=== PATIENT | female | born 1955 | race Caucasian/White ===

== ENCOUNTER 2022-01-05 13:00 | Outpatient (RCR) | payer MEDICARE, BC, SELFPAY | END 2022-03-11 11:23 | disposition home or self-care (01) | PROVIDERS: Visit Provider Orthopaedic Surgery Sports Medicine | DX: M75.02 Adhesive capsulitis of left shoulder (principal); Z51.89 Encounter for other specified aftercare | CPT/HCPCS: 97110 ==

== ENCOUNTER 2023-12-11 15:21 | Outpatient (CLI) | payer OTHER, SELFPAY ==
--- OUTSIDE RECORDS SUMMARY | 2023-12-13 15:25 | XMS_ITS | Encounter Summary ---
Author Organization [employer] Address [address], [place] [address] Care Team Providers Care Physical Chemistry Professor Name Role Phone Grecia Shipman MD Primary Care Provide r Encounter Details Date Type Department Care Team (Late st Contact Info) Description 05/13/2019 Correspondence External to External, [place] [address] ENTERIC DISEASE REPORTING Social History Tobacco Use Types Packs/Day Years Used Date Smoking Tobacco: Former Cigarettes Q uit: 06/19/2016 Smokeless Tobacco: Never Comments:quit for 10 years a nd then restarted. Quit again 06/2016. Alcohol Use Standard Drinks/Week Comments Yes 0 (1 standard drink = 0.6 oz pur e alcohol) Sex and Gender Information Value Date Recorded Sex Assigned at Not on file Gender Identity Not on file Sexual Orientation Not on file documented as of this encounter Plan of Treatment Not on file documented as of this encounter Visit Diagnoses Not on filedocumented in this encounter Additional Health Concerns Infection Onset Date Last Indicated Resolved Time R/O COVID19 12/26/2019 12/26/2019 12/28/2019 5:36 AM CDT documented as of this encounter Care Teams Physical Chemistry Professor Relationship Specialty Start Date End Date Grecia Shipman MD [address] [place] [address] PCP - General Internal Medicine 02/25/20 documented as of this encounter
--- OUTSIDE RECORDS SUMMARY | 2023-12-13 15:25 | XMS_ITS | Clinical Summary ---
Author Organization [facility] Address [place], [place] [address] Care Team Providers Care Assistant To The President Name Role Phone Pcp, No Primary Care Provider Unavailabl e Allergies No known active allergies Medications Medication Sig Dispensed Refills Start Date End Date Status FLUoxetine (PROZAC) 40 mg capsuleIndications:D ysthymia Take 1 capsule by mouth every morning. 90 capsule 3 06/07/2016 Active rosuvastatin (CRESTOR) 5 mg tablet Take 5 mg by mouth once daily. 07/10/2021 Active Active Problems Problem Noted Date Diagnosed Date Type 2 diabetes mellitus wit hout complication, without long-term current use of insulin 08/06/2021 Overview: Diagnosed Summer 2020. Mixed hyperlipidemia 08/06/2015 Depression 01/30/2015 Resolved Problems Problem Noted Date Diagnosed Date Resolved Date Tobacco abuse 01/30/2015 08/06/2015 Immunizations Name Administration Dates Next Due COVID-19 vaccine ([employer] 30mcg/0.3mL) P F, MDV 03/14/2021 Hepatitis A (Adult) 07/08/2013 Influenza, IIV4 04/25/2015 Influenza, Inactivated AIIV4 (Age 65+ Years) Preserv Free 04/08/2021 Tdap 08/06/2015,07/27/2010 Zoster (Shingrix-RZV, recombinant) 03/11/2021, Zoster (Zostavax-ZVL, live) 09/16/2016 Family History Medical History Relation Name Comments Heart Disease Father Heart Disease Mother Relation Name Status Comments Father Mother Social History Tobacco Use Types Packs/Day Years Used Date Smoking Tobacco: Former Cigarettes 1 20 0 08/06/1999 - 08/06/2019 Smokeless Tobacco: Never Tobacco Cessation:Counseling Given: Yes Alcohol Use Standard Drinks/Week Comments Yes 7 (1 standard drink = 0.6 oz pur e alcohol) 1 glass of wine per night PHQ-2 Answer Date Recorded PHQ-2 TOTAL SCORE 1 08/06/2021 Social Connections Answer Date Recorded Frequency of Communication with Friends and Fami ly Not on file 08/06/2021 Alcohol Use Answer Date Recorded How often do you have a drink containing alcohol ? 4 08/06/2021 How many drinks containing a lcohol do you have on a typical day when you are drinking? 0 08/06/2021 How often do you have five or more drinks on one occasion? 0 08/06/2021 Financial Resource Strain Answer Date R ecorded Difficulty of Paying Living Expenses Not on file 08/06/2021 Difficulty of Paying Living Expenses Not on file 08/06/2021 Sex and Gender Information Value Date Recorded Sex Assigned at Not on file Gender Identity Not on file Sexual Orientation Not on file Obstetrics History Last Filed Vital Signs Vital Sign Reading Time Taken Comments Blood Pressure 125/78 08/06/2021 1:10 PM PROMOTIONAL MARKETING AGENT Pulse 71 08/06/2021 1:10 PM PROMOTIONAL MARKETING AGENT Temperature 36.2 ??C (97.2 ??F) 08/06/2021 1:10 PM CS T Respiratory Rate 18 06/07/2016 4:22 PM PROMOTIONAL MARKETING AGENT Oxygen Saturation 96% 08/06/2021 1:10 PM PROMOTIONAL MARKETING AGENT Inhaled Oxygen Concentration - - Weight 81.3 kg (179 lb 3.2 oz) 08/06/2021 1:10 P M PROMOTIONAL MARKETING AGENT Height 169.5 cm (5' 6.73) 08/06/2021 1:10 PM CS T Body Mass Index 28.29 08/06/2021 1:10 PM PROMOTIONAL MARKETING AGENT Plan of Treatment Health Maintenance Due Date Last Done Comments Hepatitis C screening for ag e 18-79 12/28/1973 DEXA/DXA scan for age 65+ 12/28/20202019 (Verified in Care Everywhere or Patient Record) Medicare Wellness for age 65+ 12/28/2020 Pneumococcal series for age 65+ (1 of 1 - PCV) 12/28/2020 Mammogram for age 45-75 05/18/2022 05/18/20 21 (Verified in Care Everywhere or Patient Record), 08/03/2015, 08/03/2015 ([facility] of [facility]) BMI (ht and wt on same day) for age 18+ 08/06/2022 08/06/2021, 04/08/2016, 08/06/2015 Depression screening for age 12+ 08/06/2022 08/06/19 22, 06/07/2016 COVID-19 vaccine series ( season) 2023 03/14/2021, 09/05/2020, 08/19/2020 Influenza for age 65+ 02/18/2024 04/08/2021, 015 Tetanus booster 08/06/2025 08/06/2015, 07/27/2010 Lipids for age 45-75 01/04/2026 01/04/2021 (Verified in Care Everywhere or Patient Record), 08/04/2015 Colonoscopy through age 75 12/18/202812/18 (Verified in Care Everywhere or Patient Record), 01/27/2016 Tdap Completed 08/06/2015, 07/27/2010 Zoster (shingles) series for age 50+ Completed 03/11/2021, 01/05/2021, 09/16/2016 Procedures Procedure Name Priority Date/Time Associated Diagnosis Comments SCAN-COLONOSCOPY 01/27/2016 8:30 AM CDT LIPID PANEL W REFLEX MEASURED LDL Routine 08/04/2015 8:04 AM PROMOTIONAL MARKETING AGENT Elevated glucose XR MAMMO BILAT SCREEN FFDM (IA) Routine 08/03/2015 4:17 PM PROMOTIONAL MARKETING AGENT Visit for screening mammogram from Last 3 Months or Most Recently Relevant to Health Maintenance Results * SCAN-COLONOSCOPY (01/27/2016 8:30 AM CDT) Narrative Transcriptions Maryam Sinclair MD - 01/27/2016 7:38 AM CDT [facility], [address], [address], [place] [address] Patient Name: Alea Pearson Gender: Female Exam Date: 01/27/2016 Visit Number: [id number] Age: 60 Years Date of : 1955 Attending MD: Maryam Sinclair MD Medical Record#: [id number] ----- Procedure: Colonoscopy Indications: Colorectal cancer screening Referring MD: Aman Astudillo MD Primary MD: Aman Astudillo MD Medications: Admitting Medication: 0.9% Normal Saline at TKO Intra Procedure Medications: Received MAC sedation per anesthesia provider Complications: Procedure: An examination of the heart and lungs was performed and found to be withinacceptable limits. The patient was therefore deemed a reasonablecandidate for endoscopy and 1 sedation. The risks and benefits of the procedure were explained to the patient.After obtaining informed consent, MAC sedation was administered peranesthesia provider and I passed the scope without difficulty via the rectum to the cecum. The appendiceal orificeand ic valve were identified. The scope was retroflexed during theexamination The quality of the prep was excellent (Miralax/Gatorade/2tablets Bisacodyl/Magnesium Citrate). This was a complete examination throughout the entire colon. Findings: Polyp location: sigmoid/ rectum. Quantity: 2. Size: 4-5 mm. Polypshape: sessile. Maneuver: polypectomy was performed with a cold snare. Removal: complete. Retrieval: complete. Bleeding: none. Polyp location: ascending colon. Quantity: 1. Size: 3 mm. Polyp shape:sessile. Maneuver: polypectomy was performed with a cold snare . Removal: complete. Retrieval: complete. Bleeding: none. Polyp location: transverse colon. Quantity: 1. Size: 4 mm. Polypshape: sessile. Maneuver: polypectomy was performed with a cold snare . Removal: complete. Retrieval: complete. Bleeding: none. Remainder of the exam is normal. Impression: Colon polyps Pathology Results: A: COLON, SIGMOID AND RECTUM, POLYPS: Hyperplastic polyps (2) B: COLON, ASCENDING, POLYP: 1. Sessile serrated adenoma (see comment) 2. No overt dysplasia present 3. Per the attached endoscopy report: a. Polyp size: 3mm b. Resection: Complete c. Retrieval: Complete C: COLON, TRANSVERSE, POLYP: 1. Sessile serrated adenoma (see comment) 2. No overt dysplasia present 3. Per the attached endoscopy report: a. Polyp size: 4mm b. Resection: Complete c. Retrieval: Complete COMMENTS B,C. Sessile serrated adenomas account for approximately 20% of what hadbeen called hyperplastic polyps in the past. They have malignant potentialthrough the 'serrated pathway' and have a tendency to be multiple andrecurrent. Regarding the recommended interval for follow-up endoscopy forpatients with sessile serrated adenomas to look for subsequent lesions,based on Nabor Wiggins, et al, Am J Gastroenter 2012;107:1315- 1329 considerationfor intermediate interval follow-up endoscopy is reasonable given thesize, number, and distribution of sessile serrated adenomas. This generalrecommendation may need to be modified by the clinician based onindividual patient factors, however. Please contact us if you havequestions ([facility] pathologist desk [phone]). MICROSCOPIC A: Performed B: Performed C: Performed Electronically signed by: Rodney Combs MD Final Plan: Return for a colonoscopy in 3 years. We will attempt to contact you at appropriate intervals via [place] mail. Wemay not be able to find you or contact you at that time, therefore youshould know that the responsibility for following our recommendation restswith you. If you don't hear from us at the time your procedure is due,please contact our office to schedule an appointment. If your contactinformation should change, please contact our office so that we can updateyour record. _Electronically signed by: Maryam Sinclair MD 01/27/2016 Maryam Sinclair MD OTHER * (ABNORMAL) LIPID PANEL W REFLEX MEASURED LDL (08/04/2015 8:04 AM PROMOTIONAL MARKETING AGENT) CHOLESTEROL,TOTAL 241(H) 100 - 199 mg/dL 08/04/2015 12:58 PM PROMOTIONAL MARKETING AGENT [facility] TRIGLYCERIDES 164(H) <150 mg/dL 08/04/2015 12:58 PM PROMOTIONAL MARKETING AGENT [facility] HDL CHOLESTEROL 65 >40 mg/dL 08/04/2015 12:58 PM PROMOTIONAL MARKETING AGENT [facility] NON-HDL CHOLESTEROL 176(H) <145 mg/dl 08/04/2015 12:58 PM PROMOTIONAL MARKETING AGENT [facility] CHOL/HDL RATIO 3.71 <4.50 08/04/2015 12:58 PM PROMOTIONAL MARKETING AGENT [facility] LDL CHOLESTEROL 143(H) <=130 mg/dL 08/04/2015 12:58 PM PROMOTIONAL MARKETING AGENT [facility] PATIENT STATUS FASTING 08/04/2015 12:58 PM PROMOTIONAL MARKETING AGENT [facility] Blood specimen (specimen) BLOOD SPECIMEN / Unknown Venipuncture / Unknown 08/04/2015 8:04 AM PROMOTIONAL MARKETING AGENT 08/04/2015 8:04 AM PROMOTIONAL MARKETING AGENT Aman Astudillo MD [facility] [address] [place] [address], [place] * XR MAMMO BILAT SCREEN FFDM (08/03/2015 4:17 PM PROMOTIONAL MARKETING AGENT) Anatomical Region Laterality Modality BREASTS, Breast Left, Breast Right Bilateral Mammography Impressions 08/07/2015 11:51 AM PROMOTIONAL MARKETING AGENT ??There is no radiographic evidence for malignancy. ??Recommend annual mammograms. A lay language report of this examination will be provided to the patient. MAMMOGRAM ASSESSMENT: ??ACR 1 Negative Narrative 08/07/2015 11:51 AM PROMOTIONAL MARKETING AGENT XR MAMMO BILAT SCREEN FFDM [G0202.0] CLINICAL HISTORY: ??This is an asymptomatic 59 y.o. patient. INDICATION FOR EXAM: Mammogram Screening. TECHNIQUE: CC & MLO views were obtained. ??This digital study was evaluated with the assistance of Computer-Aided Detection. COMPARISON FILM: Yes 07/16/14 [facility] CNT 07/08/13 [facility] CNT FINDINGS: ??Mammographically, the breast tissue is heterogeneously dense, which could obscure detection of small masses. There are no dominant masses, suspicious micro calcifications or areas of architectural distortion. Aman Astudillo MD MAMMO from Last 3 Months or Most Recently Relevant to Health Maintenance Care Teams Assistant To The President Relationship Specialty Start Date End Date Pcp, No . PCP - General 08/06/21
--- OUTSIDE RECORDS SUMMARY | 2023-12-13 15:25 | XMS_ITS | Encounter Summary ---
Author Organization [facility] Address [address], [place] [address] Care Team Providers Care Senior Label Specialist Name Role Phone Grecia Shipman MD Primary Care Provide r Encounter Details Date Type Department Care Team (Late st Contact Info) Description 06/07/2016 Scanned History External to Transferred Record, Provider [facility] Social History Tobacco Use Types Packs/Day Years Used Date Smoking Tobacco: Never Assessed Sex and Gender Information Value Date Recorded [...] documented as of this encounter Care Teams Senior Label Specialist Relationship Specialty Start Date End Date Grecia Shipman MD [address] [place] [id number] PCP - General Internal Medicine 02/25/20 documented as of this encounter
--- OUTSIDE RECORDS SUMMARY | 2023-12-13 15:25 | XMS_ITS | Clinical Summary ---
Author Organization [facility] Address [address], [place] [address] Care Team Providers Care Back Tacker Name Role Phone Grecia Shipman MD Primary Care Provide r Source Comments You are receiving this document as you are listed as the primary care provider,follow-up provider, or the patient has been referred to you for consultation.This is in compliance with the Medicare and[facility] EHR Incentive Program,which states Providers who transition their patient to another setting of careor provider of care or refers their patient to another provider of care shouldprovide summary care record for each transition of care or referral. Morphy Allergies No known active allergies Medications Medication Sig Dispensed Refills Start Date End Date Status Ibuprofen 200 MG capsule Take 1 Capsule by mouth as needed for Pain. Active Cholecalciferol (VITAMIN D) 25 MCG (1000 UT) TABS Active fluticasone propionate (FLONASE) 50 MCG/ACT nasal solution SHAKE LIQUID AND USE 2 SPRAYS IN EACH NOSTRIL DAILY 48 g 1 10/25/2022 Active rosuvastatin (CRESTOR) 20 MG tabletIndications:Mu ltiple-type hyperlipidemia (HRC),Chest pain radiating to jaw Take 1 Tablet (20 mg) by mouth daily. 90 Tablet 3 02/02/2023 4 Active omeprazole (PRILOSEC) 20 MG capsule Take 1 Capsule (20 mg) by mouth daily. Take 1 hour before a meal. 90 Capsule 3 02/07/2023 Active losartan (COZAAR) 25 MG tablet Take 1 Tablet (25 mg) by mouth daily. 90 Tablet 3 02/07/2023 Active Continuous Blood Gluc Sensor (FREESTYLE TAMIKO 3 SENSOR)Indications:T ype II diabetes mellitus with nephropathy (HRC) Change every 14 days. 2 Each 5 03/10/2023 Active guaiFENesin-codeine (ROBITUSSINAC) 100-10 MG/5ML solutionIndications: Cough, unspecified type Take 5 mL by mouth every 4 hours as needed. 118 mL 04/04/2023 Active Additional Information Patient not taking.Reported on 04/10/2023 Continuous Blood Gluc Sensor (FREESTYLE TAMIKO 3 SENSOR)Indications:T ype II diabetes mellitus with nephropathy (HRC) Change every 14 days. Do not start before July 20, 2023. 2 Each 11 07/20/2023 Active metFORMIN XR (GLUCOPHAGE XR) 500 MG 24 hour release tabletIndications:Ty pe II diabetes mellitus with nephropathy (HRC) Take 2 Tablets (1,000 mg) by mouth daily. 180 Tablet 3 05/17/2023 Active Blood Glucose Monitoring Suppl (ACCU-CHEK GUIDE ME) w/Device KITIndications: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) Use as directed. 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 100 Each 3 08/10/2023 Active blood glucose (ACCU-CHEK GUIDE) test stripIndications:Typ e II diabetes mellitus with nephropathy (HRC) Use 1 Each to test daily. Use as directed. 100 Each 3 08/10/2023 Active Active Problems Problem Noted Date Diagnosed Date Age-related osteoporosis wit hout current pathological fracture 01/10/2020 Overview: Fosamax 12/2019-12/2020 Reclast 2021 DEXA 2021 stable/improved Plan for Reclast #3 2022 Colon polyps 09/16/2016 Mixed hyperlipidemia 08/06/2015 Type II diabetes mellitus with nephropathy 01/30 Overview: +microalbuminemia Start metformin 12/2020, A1c 6.8 04/2021 - 20lb weight loss, A1c 6 02/2022 - persistent elevated albumin, start losartan 25mg once daily Mixed stress and urge urinary incontinence 07/16 MAO (nonalcoholic steatohepatitis) 02/11/2011 Allergic rhinitis 01/27/2011 Gastroesophageal reflux disease 01/27/2011 Depression 01/27/2011 Resolved Problems Problem Noted Date Diagnosed Date Resolved Date Chest pain radiating to jaw 2017 01/05/2021 Depression 01/30/2015 09/16/2016 Increased glucose level 01/30/2015 05/0 01/2019 Encounters Date Type Department Care Team Description 10/25/2023 11:40 AM CD[place] [address] Grecia Shipman MD from Last 3 Months Immunizations Name Administration Dates Next Due Flu Vac Preserv Free (3+yrs) 03/24/2016,04/24/20 Fluzone Qiv Multidose Vial 0 .25 (6-35 Mos) 03/19/2019 HepA Adult (19+ yrs) 07/08/2013 HepA, Unspecified Formulation 07/08/2013 Influenza IIV4 (Quadrivalent ) 0.5mL (90862) 03/10/2020,03/19/2019,04/06/2018,2016,04/25/2015 Influenza IIV4 (Quadrivalent ) Fluad, 65+ Yrs 04/08/2021 Influenza IIV4 (Quadrivalent ) Fluzone, 65+ Yrs 03/03/2022 Influenza, Unspecified Formulation 03/08/2018 PCV20 ([id number]) 08/04/2022 Pfizer Bivalent 12+ 03/03/2022 Pfizer Monovalent 12+ 11/22/2021 Pfizer Monovalent 12+ Purple Top 03/14/2021,08/18,08/19/2020 Tdap 08/06/2015,07/27/2010 Zoster (Zostavax) 09/16/2016 Zoster RZV (Shingrix) 03/11/2021,01/05/2021 Family History Medical History Relation Name Comments Cancer Father elevated psa Cardiovascular Disease Father Depression Father Cardiovascular Disease Mother Glaucoma Mother Hypertension Mother renal Macular Degeneration Mother Cardiovascular Disease Maternal Grandmother Diabetes, Type II Other 2 grandmothe r Relation Name Status Comments Father Mother Brother Alive Daughter Alive Maternal Grandfather Maternal Grandmother Other 1 Alive , Cheng Other 2 Paternal Grandfather Paternal Grandmother Sister Alive Son Alive Social History Tobacco Use Types Packs/Day Years Used Date Smoking Tobacco: Former Cigarettes 1 - 07/25/2019 Smokeless Tobacco: Never Comments:quit for 10 years a nd then restarted. Alcohol Use Standard Drinks/Week Comments Yes 1 (1 standard drink = 0.6 oz pur e alcohol) PHQ-2 Answer Date Recorded PHQ-2 Score 0 02/07/2023 Sex and Gender Information Value Date Recorded Sex Assigned at Not on file Gender Identity Not on file Sexual Orientation Not on file Last Filed Vital Signs Vital Sign Reading Time Taken Comments Blood Pressure 111/67 02/14/2023 3:07 PM CDT Pulse 62 02/14/2023 3:07 PM CDT Temperature 36.7 ??C (98 ??F) 04/10/2023 10:31 AM CDT pt reported Respiratory Rate 16 02/22/2022 11:51 AM CDT Oxygen Saturation 98% 02/22/2022 11:51 AM CDT Inhaled Oxygen Concentration - - Weight 88.5 kg (195 lb) 04/10/2023 10:31 AM CDT pt reported Height 170.2 cm (5' 7) 04/10/2023 10:31 AM CDT pt reported Body Mass Index 30.54 04/10/2023 10:31 AM CDT Plan of Treatment Health Maintenance Due Date Last Done Comments HepA (2 of 2 - Risk 2-dose series) 01/05/2014 07/08/2013, 07/08/2013 Medicare Annual Wellness Visit 06/19/2023 02/07/2023, 03/18/2022, 03/02/2022, Additional history exists Diabetes: Urine Microalbumin 07/20/2023 07/20/2022, 03/02/2022, 05/04/2021, Additional history exists COVID-19 Vaccine ( season) 2023 03/27/2023, 03/03/2022, 11/22/2021, Additional history exists Diabetes: Eye Exam 08/09/2023 08/09/2022, 0 08/01/2022, 01/17/2021 (Completed) Diabetes: HGBA1C 11/07/2023 08/09/2023, , 05/15/2023, Additional history exists Diabetes: Creatinine 02/01/2024 01/31/2023, 02/09/2022, 01/04/2021, Additional history exists Diabetes: Foot Exam 02/08/2024 02/07/2023 Mammogram 10/24/2024 10/25/2023, 09/18, 05/18/2021, Additional history exists DTaP/Tdap/Td (3 - Tdap) 08/06/2025 08/06/2015, 07/27 Colonoscopy 01/20/2027 01/20/2022, 0707/2018, 01/27/2016 (Completed) Diabetes: Lipid Panel 02/01/2028 01/31/2023 , 01/04/2021, 01/15/2019, Additional history exists Hep C Screening (Preventive Services) Completed 02/11/2011 (Completed) Zoster/Shingles Completed 03/11/2021, 12/18, 09/16/2016 Dexa Completed 04/21/2022, 01/06/2020 Pneumococcal 65+ Yrs Completed 08/04/2022 Cholesterol Discontinued 01/31/2023, 12/17, 01/15/2019, Additional history exists Influenza Completed 03/27/2023, 02/17, 04/08/2021, Additional history exists HepB Aged Out No longer eligi ble based on patient's age to complete this topic Hib Aged Out No longer eligi ble based on patient's age to complete this topic IPV (Polio) Aged Out No longer eligi ble based on patient's age to complete this topic [email or web address] Aged Out No longer eligi ble based on patient's age to complete this topic Procedures Procedure Name Priority Date/Time Associated Diagnosis Comments MM MAMMOGRAM SCREENING BILAT W 3D HAYES W CAD Routine 10/25/2023 11:53 AM CDT HGB A1C Routine 08/09/2023 11:59 AM BILINGUAL TEACHER ASSISTANT 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) BASIC METABOLIC PANEL Routine 01/31/2023 11:35 AM CDT 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) LIPID PANEL & DIRECT LDL (IF NEEDED) Routine 01/31/2023 11:35 AM CDT 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) VERENICE (DIABETIC EYE EXAM) 08/09/2022 ALBUMIN/CREAT RATIO Routine 07/20/2022 1 :06 PM BILINGUAL TEACHER ASSISTANT 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) DXA BONE DENSITY SPINE/HIP Routine 04/21/2022 2:06 PM CDT Osteoporosis, unspecified osteoporosis type, unspecified pathological fracture presence COLONOSCOPY S 01/20/2022 from Last 3 Months or Most Recently Relevant to Health Maintenance Results * MM Mammogram Screening Bilat W 3D Hayes W CAD (10/25/2023 11:53 AM CDT) Anatomical Region Laterality Modality Breast Bilateral Mammography Impressions 10/26/2023 12:12 PM CDT : ACR BI-RADS Category 1: Negative RECOMMENDATION: Follow Up Imaging in 12 months - Bilateral The results and recommendations of this examination will be communicated to the patient. Narrative 10/26/2023 12:12 PM CDT MM MAMMOGRAM SCREENING BILAT W 3D HAYES W CAD performed on 10/25/23 Compared to: 10/10/2022 MM Mammogram Screening Bilat W 3D Hayes W CAD, 05/18/2021 MM Mammogram Screening Bilat W 3D Hayes W CAD, and 05/11/2020 MM Mammogram Screening Bilat W 3D Hayes W CAD ?? FINDINGS: Bilateral screening mammogram was performed with the assistance of Computer-Aided Detection and breast tomosynthesis. The breasts have scattered areas of fibroglandular density. There is no radiographic evidence of malignancy. ?? Grecia Shipman MD RAD MICHAELLE * (ABNORMAL) Hgb A1C (Expected: Now) - Collect in Lab (08/09/2023 11:59 AM BILINGUAL TEACHER ASSISTANT) Hemoglobin A1C 6.7(H) <=5.6 % 08/09/2023 9:35 PM BILINGUAL TEACHER ASSISTANT [facility] Estimated Average Glucose (Calc) 146 < 117 mg/dL 08/09/2023 9:35 PM BILINGUAL TEACHER ASSISTANT [facility] Comment:Estimated average gl ucose (eAG) converts A1c into glucose units (mg/dL) and estimates average glucose over the past approximately 3 months. The eAG reference interval (<117 mg/dL) corresponds to an A1c of <5.7%. Blood Venipuncture / Unknown 08/09/2023 11:59 AM BILINGUAL TEACHER ASSISTANT 08/09/2023 11:59 AM BILINGUAL TEACHER ASSISTANT Narrative [facility] - 08/09/2023 9:35 PM BILINGUAL TEACHER ASSISTANT For patients not previously diagnosed with diabetes: 5.7-6.4%: Increased risk for diabetes 6.5% and greater: Diagnostic for diabetes For patients diagnosed with diabetes: <8.0%: Goal of therapy for ages 18-75 Clinicians may recommend a higher or lower goal for specific individuals. Grecia Shipman MD LAB_1 [facility] [address] [place] [address], [facility] * (ABNORMAL) Lipid Panel and Direct LDL (If Needed) (01/31/2023 11:35 AM CDT) Cholesterol 175 0 - 199 mg/dL 02/01/2023 7:12 PM CDT [facility] Triglyceride 155(H) <=149 mg/dL 02/01/2023 7:12 PM CDT [facility] HDL Cholesterol 54 >=40 mg/dL 7:12 PM CDT [facility] LDL, Calculated 90 <130 mg/dL 7:12 PM CDT [facility] Non HDL Chol, Calculated 121 <=159 mg/dL 02/01/2023 7:12 PM CDT [facility] Cholesterol/HDL Ratio 3.2 02/01/2023 7:12 PM CDT [facility] Blood Venipuncture / Unknown 01/31/2023 11:35 AM CDT 01/31/2023 11:35 AM CDT Grecia Shipman MD LAB_1 Performing Organization Address City/[facility]/ZIP Co de Phone Number [facility] [address] * (ABNORMAL) Basic Metabolic Panel (01/31/2023 11:35 AM CDT) Sodium 137 136 - 145 mmol/L 01/31/2023 10:12 PM CDT [facility] Potassium 4.4 3.5 - 5.1 mmol/L 01/31/2023 10:12 PM CDT [facility] Chloride 102 98 - 109 mmol/L 01/31/2023 10:12 PM CDT [facility] CO2 25 20 - 29 mmol/L 01/31/2023 10:12 PM CDT [facility] Anion Gap 10 7 - 16 mmol/L 01/31/2023 10:12 PM CDT [facility] Calcium 9.8 8.4 - 10.4 mg/dL 01/31/2023 10:12 PM CDT [facility] BUN 13 7 - 26 mg/dL 01/31/2023 10:12 PM CDT [facility] Creatinine 0.75 0.55 - 1.02 mg/dL 01/31/2023 10:12 PM CDT [facility] Glucose 134(H) 70 - 100 mg/dL 01/31/2023 10:12 PM CDT [facility] Comment:The given reference range is for the fasting state. Non-fasting reference range for glucose is 70 - 180 mg/dL. GFR, Estimated >60 >60 mL/min/1.7 3m2 01/31/2023 10:12 PM CDT [facility] Blood Venipuncture / Unknown 01/31/2023 11:35 AM CDT 01/31/2023 11:35 AM CDT Grecia Shipman MD LAB_1 Performing Organization Address City/[facility]/ZIP Co de Phone Number [facility] [address] [place], [place] [address] * VERENICE (DIABETIC EYE EXAM) (08/09/2022) Interface Provider MD DUMMY/OTHER/AR * (ABNORMAL) Albumin/Creatinine Ratio,Random Urine (07/20/2022 1:06 PM BILINGUAL TEACHER ASSISTANT) Albumin/Creati nine Ratio, Urine, Random 38(H) <30 mg/g 07/20/2022 7:12 PM BILINGUAL TEACHER ASSISTANT [facility] Albumin, Urine, Random 40.4 mg/L 07/20/2022 7:12 PM BILINGUAL TEACHER ASSISTANT [facility] [place] [facility] Creatinine, Urine, Random 105 >20 mg/dL mg/dL 07/20/2022 7:12 PM BILINGUAL TEACHER ASSISTANT [facility] Urine Non-blood Collection / Unknown 07/20/2022 1:06 PM BILINGUAL TEACHER ASSISTANT 07/20/2022 1:06 PM BILINGUAL TEACHER ASSISTANT Grecia Shipman MD LAB_1 [facility] [address] [phone] * DXA Bone Density Spine/Hip (04/21/2022 2:06 PM CDT) Anatomical Region Laterality Modality Lower Extremity, Spine, Hip, L-Spine Other Narrative 04/21/2022 7:01 PM CDT Table formatting from the original result was not included. 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 Gender: female Height: 5' 7 (1.702 m) Weight: 185 lb (83.9 kg) Race: Medical/Surgical History Menstrual periods:None Age of menopause:44 History of hip fractures in parents:No History of previous fractures occurring spontaneously, or a fracture as a result of a fall from a standing height or less:Yes If yes, indicated area:t11 Glucocorticoids use:No Currently taking medication:Reclast Have or had listed medical conditions:Premature menopause (<45 years) Dietary/Habit Alcohol 3 units or more per day (on average):No Currently smoking:No Other pertinent history: Dual-X-ray Absorptiometry (DXA Results) AP spine (L3-L4)(L1, L2 EXCLUDED) Left hip (neck) Left ??hip (total) ?? BMD (gm/cm2) 0.716 0.754 0.832 ? T score -3.5 -0.9 -0.9 ? Z score -1.5 0.7 0.4 ?? %change from previous scan dated: ??01-06-2020 NA ??2.3% ?? Comments: *Degenerative joint disease, compression fractures, or calcification artifacts may falsely increase bone mineral density. *A discrepancy in T score is noted in the lumbar spine. (L1, L2 excluded from analysis). *Of note, vertebrae were labeled differently on 2020 DXA (L1 on current DXA was labeled T12 on previous DXA). Current DXA labeling looks correct. Diagnosis: *Severe osteoporosis. (By definition, based on T-score less than or equal to -2.5 and a nontraumatic fracture, as indicated in history.) Recommendations:. *Recommend lifestyle modifications, including proper calcium/vitamin d intake, weight bearing exercises, and fall prevention. *Consider evaluation of secondary causes of bone loss if not previously performed *Consider follow up DXA ??in 1 year, unless clinical circumstances change. *Patient is on Reclast (zoledronic acid). WHO DEFINITIONS: Normal BMD: T-score ? -1.0 Osteopenia: T-score between -1.0 and -2.5 Osteoporosis: T-score ? -2.5 FRAX Score : ??The FRAX?? algorithms give the 10-year probability of fracture. The output is a 10-year probability of hip fracture and the 10-year probability of a major osteoporotic fracture (clinical spine, forearm, hip or shoulder fracture). ?? The FRAX score takes into account the bone density, but also age, gender, weight, height, previous fracture, parental hip fracture, smoking status, glucocorticoid intake, history of RA, secondary osteoporosis, and high alcohol intake in determining fracture risk in patients with osteopenia and osteoporosis. FRAX and Fracture Risk Categories in terms of major osteoporotic fracture risk (clinical spine, forearm, hip, or shoulder): < 10% ? = ? low fracture risk ? 10% and <15% ?= ? mildly increased fracture risk ? 15% and <20% ?= ? moderately increased fracture risk ? 20% and <30% ?= ?high fracture risk ? 30% ? = ? very high fracture risk A clinician may consider FDA-approved medical therapies in postmenopausal women and men aged 50 years and older, if one or more of the following is present (clinical correlation required and therapy may not always be indicated): 1. ??The patient has a hip or vertebral (clinical or morphometric) fracture. 2. ??T-score ? -2.5 at the femoral neck, hip, or spine after appropriate evaluation to exclude secondary causes. 3. ??Low bone mass (T-score between -1.0 and -2.5 at the femoral neck, hip or spine) and a 10-year probability of a hip fracture ? 3% or a 10-year probability of a major osteoporosis-related fracture ? 20% based on the FRAX scores. 4. ??Clinicians judgment and/or patient preferences may result in a decision to patients with 10-year fracture probabilities above or below these levels. Grecia Shipman MD RAD DEXA * COLONOSCOPY S (01/20/2022) Grecia Shipman MD DUMMY/OTHER/A R from Last 3 Months or Most Recently Relevant to Health Maintenance Advance Directives * Full Code (Latest Code Status on File) Date Activated Date Inactivated Comments 2017 6:34 PM 12/30/2017 2:47 PM * Full Code Date Activated Date Inactivated Comments 10/25/2013 2:26 PM 10/26/2013 5:37 PM Care Teams Back Tacker Relationship Specialty Start Date End Date Grecia Shipman MD [address] [place] [id number] PCP - General Internal Medicine 02/25/20
--- OUTSIDE RECORDS SUMMARY | 2023-12-13 15:25 | XMS_ITS | Encounter Summary ---
Author Organization [facility] Address [address], [place] [address] Care Team Providers Care Refuge Worker Name Role Phone Grecia Shipman MD Primary Care Provide r Reason for Referral * Procedure/Equipment (Routine) - Incomplete Specialty Diagnoses / Procedures Referred By Contac t Referred To Contact Procedures MM Mammogram Screening Bilat W 3D Hayes W Grecia Valladares MD [address] [place] [id number] Referral ID Status Reason Start Date Expiration Date V isits Requested Visits Authorized [id number] Incomplete 10/25/2023 01/23/2025 1 1 Reason for Visit * Procedure/Equipment (Routine) - Incomplete Specialty Diagnoses / Procedures Referred By Contac t Referred To Contact Procedures MM Mammogram Screening Bilat W 3D Hayes W Grecia Valladares MD [address] [place] [id number] Referral ID Status Reason Start Date Expiration Date V isits Requested Visits Authorized [id number] Incomplete 10/25/2023 01/23/2025 1 1 Encounter Details Date Type Department Care Team (Late st Contact Info) Description 10/25/2023 11:40 AM CDT Ancillary Procedure [facility] [address] [address] Grecia Shipman MD [address] [place] [id number] Social History Tobacco Use Types Packs/Day Years [...] on file documented as of this encounter Procedures Procedure Name Priority Date/Time Associated Diagnosis Comments MM MAMMOGRAM SCREENING BILAT W 3D HAYES W CAD Routine 10/25/2023 11:53 AM CDT documented in this encounter Results * MM Mammogram Screening Bilat W [...] malignancy. ?? Grecia Shipman MD RAD MICHAELLE documented in this encounter Visit Diagnoses Not on filedocumented in this encounter Care Teams Refuge Worker Relationship Specialty Start Date End Date Grecia Shipman MD [address] [place] [phone] PCP - General Internal Medicine 02/25/20 documented as of this encounter
--- OUTSIDE RECORDS SUMMARY | 2023-12-13 15:25 | XMS_ITS | Encounter Summary ---
Author Organization [employer] Address [address], [place] [address] Care Team Providers Care Operational Test Mechanic Name Role Phone Grecia Shipman MD Primary Care Provide r Encounter Details Date Type Department Care Team (Latest Contact Info) Description 08/03/2015 Orders Only [facility] DEPARTMENT Provider, [place] [address] Social History Tobacco Use Types Packs/Day Years Used Date Smoking Tobacco: Never Assessed PHQ-2 Answer Date Recorded PHQ-2 Score 0 02/07/2023 Sex and Gender Information Value Date Recorded Sex Assigned at Not on file Gender Identity Not on file Sexual Orientation Not on file documented as of this encounter Plan of Treatment Not on file documented as of this encounter Procedures Procedure Name Priority Date/Time Associated Diagnosis Comments MAMMOGRAM SC 08/03/2015 documented in this encounter Results * MAMMOGRAM SC (08/03/2015) Anatomical Region Laterality Modality Other Interface Provider DUMMY/OTHER/AR documented in this encounter Visit Diagnoses Not on filedocumented in this encounter Additional Health Concerns Infection Onset Date Last Indicated Resolved Time R/O COVID19 12/26/2019 12/26/2019 12/28/2019 5:36 AM CDT documented as of this encounter Care Teams Operational Test Mechanic Relationship Specialty Start Date End Date Grecia Shipman MD [address] [place] [id number] PCP - General Internal Medicine 02/25/20 documented as of this encounter
== END 2023-12-11 15:22 | disposition home or self-care (01) ==
LOC: NFLDREF 12-13 15:23
PROVIDERS: Visit Provider Nurse Practitioner
DX: R07.9 Chest pain, unspecified (principal); J06.9 Acute upper respiratory infection, unspecified
CPT/HCPCS: 84484

== ENCOUNTER 2025-01-05 12:35 | Emergency (ER) | payer OTHER, SELFPAY ==
--- OUTSIDE RECORDS SUMMARY | 2024-11-28 13:30 | XMS_ITS | Encounter Summary ---
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 Not on file documented as of this encounter Last Filed Vital Signs Vital Sign Reading Time Taken Comments Blood Pressure 122/74 11/28/2024 1:22 PM CDT Pulse 66 11/28/2024 1:22 PM CDT Temperature 37.1 C (98.7 F) 11/28/2024 1:22 PM CDT Respiratory Rate - - Oxygen Saturation - - Inhaled Oxygen Concentration - - Weight 77.1 kg (170 lb) 11/28/2024 1:22 PM CDT Height 168.3 cm (5' 6.25) 11/28/2024 1:22 PM CD T Body Mass Index 27.23 11/28/2024 1:22 PM CDT documented in this encounter Patient Instructions * Patient Instructions* Zo Chandra LPN - 11/28/2024 1:30 PM CDT Annual Wellness Visit Summary Your care team is recommending the following tests, procedures or services. Some of these recommendations may not be fully covered by Medicare or your insurance. If you have questions, check with your insurance to determine coverage before completing these services. Health Maintenance Due Health Maintenance Due Topic Date Due ??? HepA Vaccine (2 of 2 - Risk 2-dose series) 01/05/2014 ??? COVID-19 Vaccine ( season) 2024 ??? Diabetes: Eye Exam 01/14/2025 If your Medicare Welcome or Annual Wellness Visit is showing you are due in the above list, this will be updated after this visit. You had this completed today and are not due for another year. Thank you for coming in for your Medicare Wellness Visit. To make sure we are doing our best to meet your care needs, here are a few important reminders. We want to know your thoughts as we work together to create your care plan, including stopping and starting medications. When we work together on next steps, it's called shared decision making. If there is anything else you would like to discuss, please reach out or schedule a follow-up appointmentif needed. We are here to listen. We want to help you address any concerns you have about the cost of your medications. To find options for the most cost-effective medications near you, go to https://www.[employer]/hp/pharmacy/drug-cost/index.html You can also find more information in this handout. Health care can be complicated. Sometimes, it can help to share your health information with your family or caregivers. (Caregivers can be friends as well as family.) How much you share is up to you.Here is a helpful link: https://www.[employer]/blog/jscfqm-rdua-uplmi-benefits/ We care about nutrition, how much physical activity you get and how much stress, worry or sadness you have in your life. Please reach out to your care team if you have additional information to shareor would like more resources or support. documented in this encounter Progress Notes * Zo Chandra LPN - 11/28/2024 1:30 PM CDT Medicare Annual Wellness Visit Subjective/Historical: Alea Pearson is a 68 y.o. old female w/ PMHx significant for T2DM, HLD, MAO, GERD, osteoporosis, obesity who presents to clinic for Medicare Annual Wellness Visit. Chief Complaint Patient presents with Medicare Annual Wellness Current concerns: None Walking every day Eating 3 small meals per day; usually eats foods like yogurt, cottage cheese, nuts Intermittently has interrupted sleep - wakes up spontaneously for anywhere from minutes to hours; feels like she is ruminating about nothing in particular; tried melatonin but felt very sedated the next day; denies night sweats or urinary sxs Usually gets around 9 hours of sleep per night and does not feel tired during the day No difficulty falling asleep Mood stable overall Feels satisfied with weight loss and does not want to increase Ozempic at this time Advance Directives: No advance directives are on file. Plan future discussion of advance directives. Observed Vitals: Temp 98.7 ??F (37.1 ??C) (Tympanic) Ht 5' 6.25 (1.683 m) Wt 170 lb (77.1 kg) No BMI 27.23 kg/m?? Physical Exam: General Appearance: alert, well appearing, and in no apparent distress HEENT: lids normal, sclera clear, and conjunctiva normal Heart: regular rate and rhythm and no murmurs, gallops or rubs Lungs: clear to auscultation and no wheezes, rales or rhonchi Abdomen: soft and nondistended Extremities: no edema Skin: no rashes or worrisome lesions Neurologic: normal speech and no facial droop Psychiatric: affect/mood normal, cooperative, normal judgement/insight, and memory intact Assessment/Plan 1. Encounter for Medicare annual wellness exam (Primary) 2. Sleep disturbance - Discussed good sleep hygiene habits 3. T2DM, controlled 4. Non-nephrotic range proteinuria - Hold off on increasing Ozempic per patient preference - Continue metformin and losartan Counseling and education provided today includes proper nutrition and health habits, fall prevention, and for those items ordered above. See plan for future preventive services in Patient Instructions. Nancy Rabago MD Internal Medicine Resident Staffed with attending physician, Grecia Shipman MD. * Grecia Shipman MD - 11/28/2024 1:30 PM CDT I have discussed the history and physical exam with the resident. I have personally seen and examined the patient and reviewed the plan of care as outlined in the note and agree. Abdi points as follows. Medicare wellness - no new concerns on questions Sleep - wakes up a lot at night. Has no trouble falling asleep. Doesn't want to take anything. Not really affecting her day or activities. Diabetes - doing great on current 0.5mg dose of ozempic. Has lost weight steadily. A1c excellent. She does not have side effects. For now agree that we will stay with the same dose. We can always increase if needed pending weight, A1c. - continue ozempic 0.5mg weekly - metformin 1500mg daily - on statin - BP at goal - +mild microalbuminuria - with no renal insufficiency. IMproving on GLP1. On losartan 25mg daily. HLD - crestor 20mg daily Osteoporosis - reclast x 3 [id number]. Repeat DEXA 1 year. Remains on drug holiday. If ongoing loss restart reclast. 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) MAO (nonalcoholic steatohepatitis) Expected: 11/29/2024, Expires: 11/24/2025 Hgb A1C (Expected: Now) - Collect in Lab Lab Routine 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) MAO (nonalcoholic steatohepatitis) Expected: 11/29/2024, Expires: 11/24/2025 Basic Metabolic Panel Lab Routine 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) MAO (nonalcoholic steatohepatitis) Expected: 11/29/2024, Expires: 11/24/2025 Albumin/Creatinine Ratio,Random Urine Lab Routine 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) MAO (nonalcoholic steatohepatitis) Expected: 11/29/2024, Expires: 11/24/2025 Vitamin B12 Only Lab Routine 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) MAO (nonalcoholic steatohepatitis) Expected: 11/29/2024, Expires: 11/24/2025 AST Lab Routine MAO (nonalcoholic steatohepatitis) Expected: 11/29/2024, Expires: 11/24/2025 ALT (SGPT) Lab Routine MAO (nonalcoholic steatohepatitis) Expected: 11/29/2024, Expires: 11/24/2025 documented as of this encounter Visit Diagnoses Diagnosis Encounter for Medicare annual wellness exam- Primary 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
--- OUTSIDE RECORDS SUMMARY | 2025-01-05 12:37 | XMS_ITS | Clinical Summary ---
Author Organization [employer] Address [address] [place] [address]. 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
--- OUTSIDE RECORDS SUMMARY | 2025-01-05 12:37 | XMS_ITS | Encounter Summary ---
Author Organization [employer] Address [address], [place] [address] Care Team Providers Care Director Telemetry Name Role Phone Grecia Shipman MD Primary Care Provide r Encounter Details Date Type Department Care Team (Late Contact Info) Description 05/13/2019 Correspondence External to External, [place] [address] ENTERIC DISEASE REPORTING Social History Tobacco Use Types Packs/Day Years Used Date Smoking Tobacco: Former Cigarettes Q uit: 06/19/2016 Smokeless Tobacco: Never Comments:quit for 10 years a nd then restarted. Quit again 06/2016. 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 Not on file documented as of this encounter Plan of Treatment Upcoming Encounters Date Type Department Care Team (Late Contact Info) Description 06/02/2025 1:30 PM PIPE SMOKING MACHINE OPERATOR Telemedicine [facility] Internal Medicine [address] [place], [place] [phone] Grecia Shipman MD [address] [place], [place] [phone] documented as of this encounter Visit Diagnoses Not on filedocumented in this encounter Additional Health Concerns Infection Onset Date Last Indicated Resolved Time R/O COVID19 12/26/2019 12/26/2019 12/28/2019 5:36 AM CDT documented as of this encounter Care Teams Director Telemetry Relationship Specialty Start Date End Date Grecia Shipman MD [address] [place] [address] PCP - General Internal Medicine 02/25/20 documented as of this encounter
--- OUTSIDE RECORDS SUMMARY | 2025-01-05 12:37 | XMS_ITS | Clinical Summary ---
Author Organization [employer] Address [address] [place] [address] Care Team Providers Care Supervisory Forester Name Role Phone Pcp, No Primary Care Provider Unavailabl e Allergies No known active allergies Medications FLUoxetine (PROZAC) 40 mg capsuleIndicati ons:Dysthymia Take 1 capsule by mouth every morning. 90 capsule 3 06/07/2016 Active rosuvastatin (CRESTOR) 5 mg tablet Take 5 mg by mouth once daily. 07/10/2021 Active Active Problems Problem Noted Date Diagnosed Date Type 2 diabetes mellitus wit hout complication, without long-term current use of insulin 08/06/2021 Overview (08/06/2021): Diagnosed Summer 2020. Mixed hyperlipidemia 08/06/2015 Depression 01/30/2015 Resolved Problems Problem Noted Date Diagnosed Date Resolved Date Tobacco abuse 01/30/2015 08/06/2015 Immunizations Immunization Administration Dates Next Due COVID-19 vaccine (Quickflix 30mcg/0.3mL) P F, MDV 03/14/2021 Hepatitis A [...] Paying Living Expenses Not on file 08/06/2021 Comments No Sex and Gender Information Value Date Recorded Sex Assigned at Not on file Legal Sex Female 12:33 PM CDT Gender Identity Not on file Sexual Orientation Not on file Obstetrics History Last Filed Vital Signs Vital Sign Reading Time Taken Comments Blood Pressure 125/78 08/06/2021 1:10 PM CAR FERRY MASTER Pulse 71 08/06/2021 1:10 PM CAR FERRY MASTER Temperature 36.2 C (97.2 F) 08/06/2021 1:10 PM CAR FERRY MASTER Respiratory Rate 18 06/07/2016 4:22 PM CAR FERRY MASTER Oxygen Saturation 96% 08/06/2021 1:10 PM CAR FERRY MASTER Inhaled Oxygen Concentration - - Weight 81.3 kg (179 lb 3.2 oz) 08/06/2021 1:10 P M CAR FERRY MASTER Height 169.5 cm (5' 6.73) 08/06/2021 1:10 PM CS T Body Mass Index 28.29 08/06/2021 1:10 PM CAR FERRY MASTER Plan of Treatment Health Maintenance Due Date Last Done Comments Hepatitis C screening for age 18-79 12/28/1973 Pneumococcal series for age 50+ (1 of 1 - PCV) 12/28/2005 DEXA/DXA scan for age 65+ 12/28/20202019 (Verified in Care Everywhere or Patient Record) Medicare Wellness for age 65+ 12/28/2020 Mammogram for age 45-75 05/18/2022 05/18/20 21 (Verified in Care Everywhere or Patient Record), 08/03/2015, 08/03/2015 (Completed outside of [facility]) BMI (ht and wt on same day) for age 18+ 08/06/2022 08/06/2021, 04/08/2016, 08/06/2015 Depression screening for age 12+ 08/06/2022 08/06/2021, 06/07/2016 COVID-19 vaccine series ( season) 2024 03/14/2021, 09/05/2020, 08/19/2020 Influenza Vaccine (#1) 2025 04/08/2021, 2014 Tetanus booster 08/06/2025 08/06/2015, 07/27/2010 Lipids for age 45-75 01/04/2026 01/04/2021 (Verified in Care Everywhere or Patient Record), 08/04/2015 Colonoscopy through age 75 12/18/202812/18 (Verified in Care Everywhere or Patient Record), 01/27/2016 RSV vaccine for adults or (1 - 1-dose 75+ series) 12/28/2030 Zoster (shingles) series for age 50+ Completed 03/11/2021, 01/05/2021, 09/16/2016 Hepatitis B series for 19+ Aged Out N o longer eligible based on patient's age to complete this topic Procedures Procedure Name Priority Date/Time Associated Diagnosis Comments SCAN-COLONOSCOPY 01/27/2016 8:30 AM CDT LIPID PANEL W REFLEX MEASURED LDL Routine 08/04/2015 8:04 AM CAR FERRY MASTER Elevated glucose XR MAMMO BILAT SCREEN FFDM (IA) Routine 08/03/2015 4:17 PM CAR FERRY MASTER Visit for screening mammogram from Last 3 Months or Most Recently Relevant to Health Maintenance Results * SCAN-COLONOSCOPY (01/27/2016 8:30 AM CDT) Narrative Transcriptions Maryam Sinclair MD - 01/27/2016 7:38 AM CDT [facility] [address], [address], [place] [address] Patient Name: Alea Pearson Gender: Female Exam Date: 01/27/2016 Visit Number: [id number] Age: 60 Years Date of : 1955 Attending MD: Maryam Sinclair MD Medical Record#: [id number] ----- Procedure: Colonoscopy Indications: Colorectal cancer screening [...] however. Please contact us if you havequestions ([facility] pathologist desk [phone]). MICROSCOPIC A: Performed B: Performed C: Performed [...] _Electronically signed by: Maryam Sinclair MD 01/27/2016 us Maryam Sinclair MD OTHER Final Resu lt * (ABNORMAL) LIPID PANEL W REFLEX MEASURED LDL (08/04/2015 8:04 AM CAR FERRY MASTER) CHOLESTEROL,TOTAL 241(H) 100 - 199 mg/dL 08/04/2015 12:58 PM CAR FERRY MASTER [facility] TRIGLYCERIDES 164(H) <150 mg/dL 08/04/2015 12:58 PM CAR FERRY MASTER [facility] HDL CHOLESTEROL 65 >40 mg/dL 08/04/2015 12:58 PM CAR FERRY MASTER [facility] NON-HDL CHOLESTEROL 176(H) <145 mg/dl 08/04/2015 12:58 PM CAR FERRY MASTER [facility] CHOL/HDL RATIO 3.71 <4.50 08/04/2015 12:58 PM CAR FERRY MASTER [facility] LDL CHOLESTEROL 143(H) <=130 mg/dL 08/04/2015 12:58 PM CAR FERRY MASTER [facility] PATIENT STATUS FASTING 08/04/2015 12:58 PM CAR FERRY MASTER [facility] Blood specimen (specimen) BLOOD SPECIMEN / Unknown Venipuncture / Unknown 08/04/2015 8:04 AM CAR FERRY MASTER 08/04/2015 8:04 AM CAR FERRY MASTER us Aman Astudillo MD CHEMISTRY Final Resu lt [facility] [address] [place] [address], [place] * XR MAMMO BILAT SCREEN FFDM (08/03/2015 4:17 PM CAR FERRY MASTER) Anatomical Region Laterality Modality BREASTS, Breast Left, Breast Right Bilateral Mammography Impressions 08/07/2015 11:51 AM CAR FERRY MASTER There is no radiographic evidence for malignancy. Recommend annual mammograms. A lay language report of this examination will be provided to the patient. MAMMOGRAM ASSESSMENT: ACR 1 Negative Narrative 08/07/2015 11:51 AM CAR FERRY MASTER XR MAMMO BILAT SCREEN FFDM [G0202.0] CLINICAL HISTORY: This is an asymptomatic 59 y.o. patient. INDICATION FOR EXAM: Mammogram Screening. TECHNIQUE: CC & MLO views were obtained. This digital study was evaluated with the assistance of Computer-Aided Detection. COMPARISON FILM: Yes 07/16/14 [facility] 07/08/13 [facility] FINDINGS: Mammographically, the breast tissue is heterogeneously dense, which could obscure detection of small masses. There are no dominant masses, suspicious micro calcifications or areas of architectural distortion. Aman Astudillo MD MAMMO Final Resu lt from Last 3 Months or Most Recently Relevant to Health Maintenance Insurance [employer] [place] [phone] Care Teams Supervisory Forester Relationship Specialty Start Date End Date Pcp, No . PCP - General 08/06/21
--- OUTSIDE RECORDS SUMMARY | 2025-01-05 12:37 | XMS_ITS | Encounter Summary ---
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 Gender Identity Not on file Sexual Orientation Not on file 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 Not on file documented as of this encounter Plan of Treatment Upcoming Encounters Date Type Department Care Team (Late Contact Info) Description 06/02/2025 1:30 PM LABOR ECONOMICS TEACHER Telemedicine [facility] Internal Medicine [address] [place] [address] Grecia Shipman MD [address] [place], [place] [phone] documented as of this encounter Visit Diagnoses Not on filedocumented in this encounter Care Teams Deputy Fire Marshal Relationship Specialty Start Date End Date Grecia Shipman MD [address] [place], [place] [phone] PCP - General Internal Medicine 02/25/20 documented as of this encounter
--- OUTSIDE RECORDS SUMMARY | 2025-01-05 12:37 | XMS_ITS | Clinical Summary ---
Author Organization [facility] Address [address] [address] Care Team Providers Care Backing In Machine Tender Name Role Phone Grecia Shipman MD Primary Care Provide r Source Comments You are receiving this document as you are listed as the primary care provider,follow-up provider, or the patient has been referred to you for consultation.This is in compliance with the Medicare and[place] EHR Incentive Program,which states Providers who transition their patient to another setting of careor provider of care or refers their patient to another provider of care shouldprovide summary care record for each transition of care or referral. [employer] Allergies No known active allergies Medications * This document contains information received from the source organization and may not represent a complete record from that organization. Ibuprofen 200 MG capsule Take 1 Capsule by mouth as needed for Pain. 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 2 Each 5 03/10/20 23 Active guaiFENesin-codein e (ROBITUSSINAC) 100-10 MG/5ML solutionIndication s:Cough, unspecified type Take 5 mL by mouth every 4 hours as needed. 118 mL 04/04/20 23 Active Additional Information Patient not taking.Reported on 11/28/2024 Blood Glucose Monitoring Suppl (ACCU-CHEK GUIDE ME) w/Device KITIndications:Typ e II diabetes mellitus with nephropathy (HRC) Use as directed. 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 100 Each 3 08/10/19 24 Active omeprazole (PRILOSEC) 20 MG capsule TAKE 1 CAPSULE(20 MG) BY MOUTH DAILY 1 HOUR BEFORE A MEAL 90 Capsule 3 02/08/20 24 Active vilazodone (VIIBRYD) 20 MG tablet Take 1 Tablet (20 mg) by mouth daily. 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 3 mL 11 08/08/19 25 Active blood glucose (ACCU-CHEK GUIDE) test stripIndications:T ype II diabetes mellitus with nephropathy (HRC) Use 1 Each to test daily. Use as directed. 100 Each 3 10/09/19 25 Active Active Problems Problem Noted Date Diagnosed Date Age-related osteoporosis wit hout current pathological fracture 01/10/2020 Overview (03/13/2024): Fosamax 12/2019-12/2020 Reclast 12/2020, 2021 DEXA 2021 stable/improved Reclast #3 2022 DEXA 2024 Colon polyps 09/16/2016 Mixed hyperlipidemia 08/06/2015 Type II diabetes mellitus with nephropathy 01/30 Overview (03/09/2022): +microalbuminemia Start metformin 12/2020, A1c 6.8 04/2021 [...] Depression 01/30/2015 09/16/2016 Increased glucose level 01/30/2015 05/01/2019 Encounters Date Type Department Care Team Description 11/28/2024 1:30 PM CDT [facility] [address] [place] [id number] Grecia Shipman MD Encounter for Medicare annual wellness exam (Primary Dx); 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); MAO (nonalcoholic steatohepatitis); Mixed hyperlipidemia (HRC); Age-related osteoporosis without current pathological fracture (HRC); Sleep disturbance 10/29/2024 1:20 PM CDT Ancillary Procedure Mammography at [address] [phone] 10/16/2024 Results Follow-Up [facility] [address] [place] [phone] Grecia Shipman MD 10/15/2024 1:20 PM CDT Lab Visit Laboratory at [facility] [address] [place] [phone] 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); 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) 10/07/2024 4:30 PM CDT E-Visit [facility] [address] [place] [phone] Grecia Shipman MD Dx: 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) from Last 3 Months Immunizations Immunization Administration Dates Next Due Flu Vac Preserv Free (3+yrs) 03/24/2016,04/24/20 15 Fluzone Qiv Multidose Vial 0 .25 (6-35 Mos) 03/19/2019 HepA Adult (19+ yrs) 07/08/2013 HepA, Unspecified Formulation 07/08/2013 Influenza IIV3 (Trivalent) F luzone Highdose, 65+ Yrs (18215) 03/10/2024 Influenza IIV4 (Quadrivalent ) 0.5mL (89120) 03/10/2020,03/19/2019,04/06/2018,2016,04/25/2015 Influenza IIV4 (Quadrivalent ) Fluad, 65+ Yrs 04/08/2021 Influenza IIV4 (Quadrivalent ) Fluzone, 65+ Yrs 03/27/2023,03/03/2022 Influenza, Unspecified Formulation 03/08/2018 Moderna COVID-19 12+ 03/10/2024 PCV20 (Dnyaepx60) 08/04/2022 Pfizer Bivalent 12+ 03/03/2022 Pfizer COVID-19 12+ 03/27/2023 Pfizer Monovalent 12+ 11/22/2021 Pfizer Monovalent 12+ Purple Top 03/14/2021,08/18,08/19/2020 Tdap 08/06/2015,07/27/2010 Zoster (Zostavax) 09/16/2016 Zoster RZV (Shingrix) 03/11/2021,01/05/2021 Family History Medical History Relation Name Comments Cancer Father Bill elevated psa Cardiovascular Disease Father Bill Depression Father Bill Cardiovascular Disease Mother Tala Glaucoma Mother Tala Hypertension Mother Tala renal Macular Degeneration Mother Tala Cardiovascular Disease Maternal Grandmother Diabetes, Type II Other 2 grandmothe r Relation Name Status Comments Father Bill Mother Tala Brother Alive Daughter Alive Maternal Grandfather Maternal Grandmother Other 1 Alive , Cheng Other 2 Paternal Grandfather Paternal Grandmother Sister Alive Son Alive Social History Tobacco Use Types Packs/Day Years Used Date Smoking Tobacco: Former Cigarettes 1 - 07/25/2019 Smokeless Tobacco: Never Tobacco Cessation:Counseling Given: Not Answered Comments:quit for 10 years and then restarted. 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 Not on file Last Filed Vital Signs Vital Sign Reading Time Taken Comments Blood Pressure 122/74 11/28/2024 1:22 PM CDT Pulse 66 11/28/2024 1:22 PM CDT Temperature 37.1 C (98.7 F) 11/28/2024 1:22 PM CDT Respiratory Rate 16 02/22/2022 11:51 AM CDT Oxygen Saturation 98% 02/22/2022 11:51 AM CDT Inhaled Oxygen Concentration - - Weight 77.1 kg (170 lb) 11/28/2024 1:22 PM CDT Height 168.3 cm (5' 6.25) 11/28/2024 1:22 PM CD T Body Mass Index 27.23 11/28/2024 1:22 PM CDT Plan of Treatment Upcoming Encounters Date Type Department Care Team (Late st Contact Info) Description 06/02/2025 1:30 PM ARTISAN PLASTERER Telemedicine [facility] [address] [place] [phone] Grecia Shipman MD [address] [place], [place] [id number] Health Maintenance Due Date Last Done Comments HepA Vaccine (2 of 2 - Risk 2-dose series) 01/05/2014 07/08/2013, 07/08/2013 COVID-19 Vaccine ( season) 2024 03/10/2024, 03/27/2023, 03/03/2022, Additional history exists Diabetes: Eye Exam 01/14/2025 01/15/2024 (C ompleted), 01/08/2024, 08/09/2022, Additional history exists Influenza Vaccine (#1) 2025 4, 03/27/2023, 03/03/2022, Additional history exists Diabetes: Creatinine 03/07/2025 03/07/2024, 01/31/2023, 02/09/2022, Additional history exists Diabetes: Foot Exam 03/07/2025 03/07/2024, Diabetes: HGBA1C 04/16/2025 10/15/2024, 05/2024, 01/29/2024, Additional history exists DTaP/Tdap/Td Vaccine (3 - Tdap) 08/06/2025 08/06/2015, 07/27/2010 Diabetes: Urine Microalbumin 10/15/2025 10/15/2024, 03/07/2024, 07/20/2022, Additional history exists Mammogram 10/29/2025 10/29/2024, 05/0 01/2024, 10/10/2022, Additional history exists Medicare Annual Wellness Visit 11/28/2025 11/28/2024, 03/07/2024, 02/07/2023, Additional history exists Dexa 07/23/2026 07/23/2024, 11/0 08/2021, 01/06/2020 Colonoscopy 01/20/2027 01/20/2022, 070 07/2018, 01/27/2016 (Completed) Diabetes: Lipid Panel 03/07/2029 03/07/2024 , 01/31/2023, 01/04/2021, Additional history exists RSV Vaccine (1 - 1-dose 75+ series) 12/28/2030 Hep C Screening (Preventive Services) Completed 02/11/2011 (Completed) Zoster/Shingles Vaccine Completed 03/11/20 21, 01/05/2021, 09/16/2016 Pneumococcal Vaccine 50+ Yrs Completed 08/04/2022 Cholesterol Discontinued 03/07/2024, 01/17, 01/04/2021, Additional history exists HepB Vaccine Aged Out No longer eligi ble based on patient's age to complete this topic Hib Vaccine Aged Out No longer eligi ble based on patient's age to complete this topic IPV (Polio) Vaccine Aged Out No longe r eligible based on patient's age to complete this topic MCV4 Vaccine Aged Out No longer eligi ble based on patient's age to complete this topic Meningococcal B Vaccine Aged Out No l onger eligible based on patient's age to complete this topic Procedures Procedure Name Priority Date/Time Associated Diagnosis Comments MM MAMMOGRAM SCREENING BILAT W 3D HAYES W CAD Routine 10/29/2024 1:35 PM CDT ALBUMIN/CREAT RATIO Routine 10/15/2024 1 :13 PM CDT 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) HGB A1C Routine 10/15/2024 1:13 PM CDT 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) DXA BONE DENSITY SPINE/HIP Routine 07/23/2024 1:17 PM ARTISAN PLASTERER Age-related osteoporosis without current pathological fracture (HRC) BASIC METABOLIC PANEL Routine 03/07/2024 2:10 PM CDT 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) LIPID PANEL & DIRECT LDL (IF NEEDED) Routine 03/07/2024 2:10 PM CDT 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 Narrative 10/30/2024 3:03 PM CDT MM MAMMOGRAM SCREENING BILAT W 3D HAYES W CAD performed on 10/29/24 FDA Accredited Facility: [place] [address] Compared to: 10/25/2023 MM Mammogram Screening Bilat W 3D Hayes W CAD, 10/10/2022 MM Mammogram Screening Bilat W 3D Hayes W CAD, 05/18/2021 MM Mammogram Screening Bilat W 3D Hayes W CAD, 05/11/2020 MM Mammogram Screening Bilat W 3D Hayes W CAD, 12/26/2018 MM Mammogram Screening Bilat W 3D Hayes W CAD, 11/03/2017 MM Mammogram Screening Bilat W Hayes W CAD, and 10/14/2016 MM Mammogram Screening Bilat W CAD FINDINGS: Bilateral screening mammogram was performed with the assistance of Computer-Aided Detection and breast tomosynthesis. There are scattered areas of fibroglandular density. There is no radiographic evidence of malignancy. us Grecia Shipman MD RAD MICHAELLE Final Result * (ABNORMAL) Albumin/Creatinine Ratio,Random Urine (10/15/2024 1:13 PM CDT) Albumin/Creati nine Ratio, Urine, Random 38(H) <30 mg/g 10/15/2024 4:41 PM CDT [facility] Albumin, Urine, Random 42.3 mg/L 10/15/2024 4:41 PM CDT [facility] Creatinine, Urine, Random 110 >20 mg/dL mg/dL 10/15/2024 4:41 PM CDT [facility] Urine Non-blood Collection / Unknown 10/15/2024 1:13 PM CDT 10/15/2024 1:25 PM CDT us Grecia Shipman MD LAB_1 Final Result [facility] [address] * (ABNORMAL) Hgb A1C (10/15/2024 1:13 PM CDT) Hemoglobin A1C 5.8(H) <=5.6 % 10/15/2024 5:12 PM CDT [facility] Estimated Average Glucose (Calc) 120 < 117 mg/dL 10/15/2024 5:12 PM CDT [facility] Comment:Estimated average gl ucose (eAG) converts A1c into glucose units (mg/dL) and estimates average glucose over the past approximately 3 months. The eAG reference interval (<117 mg/dL) corresponds to an A1c of <5.7%. Blood Venipuncture / Unknown 10/15/2024 1:13 PM CDT 10/15/2024 1:25 PM CDT Narrative [facility] - 10/15/2024 5:12 PM CDT For patients not previously diagnosed with diabetes: 5.7-6.4%: Increased risk for diabetes 6.5% and greater: Diagnostic for diabetes For patients diagnosed with diabetes: <8.0%: Goal of therapy for ages 18-75 Clinicians may recommend a higher or lower goal for specific individuals. us Grecia Shipman MD LAB_1 Final Result Performing Organization Address City/State/[facility] Co de Phone Number [facility] [address] * DXA Bone Density Spine/Hip (07/23/2024 1:17 PM ARTISAN PLASTERER) Pathologist [facility] DXA Lumbar Spine Bone Mineral Density 0.794 gm/cm2 EXTERNAL RESULTS DXA Lumbar Spine T-Score -2.3 EXTERNAL RESULTS DXA Lumbar Spine Z-Score -0.3 EXTERNAL RESULTS DXA Hip Left Bone Mineral Density 0.795 gm/cm2 EXTERNAL RESULTS DXA Hip Left T-Score -1.2 EXTERNAL RESULTS DXA Hip Left Z-Score 0.2 EXTERNAL RESULTS DXA Femur Left Bone Mineral Density 0.721 gm/cm2 EXTERNAL RESULTS DXA Femur Left T-Score -1.1 EXTERNAL RESULTS DXA Femur Left Z-Score 0.6 EXTERNAL RESULTS % Change Spine 0.7 % EXTER NAL RESULTS % Change Left Hip (Total) -4.4 % EXTERNAL RESULTS Anatomical Region Laterality Modality Lower Extremity, Spine, Hip, L-Spine Other Narrative 07/24/2024 12:12 PM ARTISAN PLASTERER Table formatting from the original result was not included. Patient Name: Alea Holly Pearson Densitometer: [employer] HORIZON W Appt Dept/Resource: Radiology Dxa HS DXA Demographics Age: 68 y.o. Gender: Female Height: 5' 6.9 (1.699 m) Height at age 25: 5'7.5 Weight: 174 lb 6.4 oz (79.1 kg) Race: Medical/Surgical History Menstrual periods: None Age of menopause: 44 Able to stand from a chair easily without use of the arms?: Yes, easily How many falls indoors/outdoors within the last 12 months?: 0 History of fractures in parents: No History of previous fractures?: No Hip replacement?: No Oral cortisone or steroid medication for more than 3 months?: No Currently or have taken medications to treat osteoporosis?: Yes Current medication for osteoporosis: None Previously taken medication for osteoporosis: Reclast (Zoledronic acid) Taking any aromatase inhibitor medication for breast cancer - anti-estrogen excluding tamoxifen?: No Have had the following medical conditions: Diabetes mellitus type 1 or 2 Dietary/Habit Alcohol 3 units or more per day on average?: No Currently smoking tobacco? No Daily servings of calcium rich food: 2 Do you take a daily calcium supplement?: No Dual-X-ray Absorptiometry (DXA) Results Skeletal Site BMD (gm/cm2) T-Score Z-Score % Change from Previous Scan dated: 04/21/2022 Spine (L1, L2, L3, L4) 0.794 -2.3 -0.3 0.7% Left Hip (Total) 0.795 -1.2 0.2 -4.4% Left Hip (Femoral neck) 0.721 -1.1 0.6 N/A Right Hip (Total) N/A N/A N/A N/A Right Hip (Femoral neck) N/A N/A N/A N/A Forearm (06/21) (Not Scanned) N/A N/A N/A N/A *N/A indicates that measurements were either not needed or not valid FRAX Score: 10 Year Risk Hip Fracture: 0.8% 10 Year Risk Major Osteoporotic Fracture: 8.6% Comments: *Increase in bone density of spine is not statistically significant. *Decrease in bone density of hip is statistically significant. *Degenerative joint disease, compression fractures, or calcification artifacts may falsely increase bone mineral density. Diagnosis: *Low bone mass (osteopenia) of spine. Patient has a low risk of fracture Recommendations:. *Recommend lifestyle modifications as needed, including proper Calcium/Vitamin D intake, weight bearing exercises, and fall prevention. *Consider follow up DXA in 2 years, unless clinical circumstances change. Changes of spine and total hip bone density >= 0.03 g/cm2 are beyond densitometer precision error and generally are considered significant when the current and prior studies were done on the same densitometer. FRAX Explanation: The 10 year risks of hip and major osteoporotic fractures (clinical spine, forearm, hip or shoulder fracture) are calculated by the FRAX algorithm based on femoral neck bone density, age, gender, race/ethnicity, weight, height, previous fracture, parental hip fracture, smoking status, glucocorticoid intake, history of RA, secondary osteoporosis, and high alcohol consumption. FRAX fracture risk estimates are adjusted for Trabecular Bone Score (TBS) when available. Trabecular Bone Score (TBS) is a measure of the microarchitectural integrity of trabecular bone, and is derived from the [id number] changes of bone density embedded in the AP spine BMD image. TBS is only modestly correlated with BMD, and is modestly associated with incident major osteoporotic and hip fractures independent of BMD and other risk factors. FRAX Fracture Risk Categories in terms of major osteoporotic fractures: < 10% = low fracture risk >= 10% and <15% = mildly increased fracture risk >= 15% and <20% = moderately increased fracture risk >= 20% and <30% = high fracture risk >= 30% = very high fracture risk National Osteoporosis Foundation Treatment Guideline A clinician may consider FDA-approved medical therapies in postmenopausal women and men aged 50 years and older, if one or more of the following is present (clinical correlation required and therapy may not always be indicated): The patient has a hip or vertebral fracture. T-score <= -2.5 at the femoral neck, hip, or spine after appropriate evaluation to exclude secondary causes. Low bone mass (T-score between -1.0 and -2.5 at the femoral neck, hip or spine) and a 10-year probability of a hip fracture >= 3% or a 10-year probability of a major osteoporosis-related fracture >= 20% based on the FRAX scores. us Grecia Shipman MD RAD DEXA Final Result * Lipid Panel and Direct LDL (If Needed) (03/07/2024 2:10 PM CDT) Cholesterol 140 0 - 199 mg/dL 03/07/2024 5:48 PM CDT [facility] Triglyceride 144 <=149 mg/dL 03/07/2024 5:48 PM CDT [facility] HDL Cholesterol 52 >=40 mg/dL 03/07/2024 5:48 PM CDT [facility] LDL, Calculated 59 <130 mg/dL 03/07/2024 5:48 PM CDT [facility] Non HDL Chol, Calculated 88 <=159 mg/dL 03/07/2024 5:48 PM CDT [facility] Cholesterol/HDL Ratio 2.7 <=5.0 03/07/2024 5:48 PM CDT [facility] Hours Fasting 14.0 8 - 12 Hours 03/07/2024 5:48 PM CDT [facility] Blood Venipuncture / Unknown 03/07/2024 2:10 PM CDT 03/07/2024 2:10 PM CDT us Grecia Shipman MD LAB_1 Final Result [facility] [address] [id number] [address] [place] [phone] * (ABNORMAL) Basic Metabolic Panel (03/07/2024 2:10 PM CDT) Sodium 138 136 - 145 mmol/L 03/07/2024 5:48 PM CDT [facility] Potassium 4.2 3.5 - 5.1 mmol/L 03/07/2024 5:48 PM CDT [facility] Chloride 104 98 - 109 mmol/L 03/07/2024 5:48 PM CDT [facility] CO2 24 20 - 29 mmol/L 03/07/2024 5:48 PM CDT [facility] Anion Gap 10 6 - 16 mmol/L 03/07/2024 5:48 PM CDT [facility] Calcium 9.9 8.4 - 10.4 mg/dL 03/07/2024 5:48 PM CDT [facility] BUN 16 7 - 26 mg/dL 03/07/2024 5:48 PM CDT [facility] Creatinine 0.75 0.55 - 1.02 mg/dL 03/07/2024 5:48 PM CDT [facility] Glucose 113(H) 70 - 100 mg/dL 03/07/2024 5:48 PM T [facility] Comment:The given reference range is for the fasting state. Non-fasting reference range for glucose is 70 - 180 mg/dL. GFR, Estimated >60 >60 mL/min/1. 73m2 03/07/2024 5:48 PM CDT [facility] Hours Fasting 14.0 8 - 12 Hours 03/07/2024 5:48 PM CDT [facility] Blood Venipuncture / Unknown 03/07/2024 2:10 PM CDT 03/07/2024 2:10 PM CDT Grecia Shipman MD LAB_1 Final Result [facility] [address] [address] [address] [place] [phone] * VERENICE (DIABETIC EYE EXAM) (01/08/2024) Grecia Shipman MD DUMMY/OTHER/AR Final Result * COLONOSCOPY S (01/20/2022) Grecia Shipman MD DUMMY/OTHER/AR Final Result from Last 3 Months or Most Recently Relevant to Health Maintenance Insurance MEDICARE ADVANTAGE MEDICARE ADVANTAGE Advance Directives * Full Code (Latest Code Status on File) Date Activated Date Inactivated Comments 2017 6:34 PM 12/30/2017 2:47 PM * Full Code Date Activated Date Inactivated Comments 10/25/2013 2:26 PM 10/26/2013 5:37 PM Care Teams Backing In Machine Tender Relationship Specialty Start Date End Date Grecia Shipman MD [address] [place] [id number] PCP - General Internal Medicine 02/25/20
--- OUTSIDE RECORDS SUMMARY | 2025-01-05 12:37 | XMS_ITS | Encounter Summary ---
Author Organization 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 Gender Identity Not on file Sexual Orientation Not on file documented as of this encounter Plan of Treatment Upcoming Encounters Date Type Department Care Team (Late Contact Info) Description 06/02/2025 1:30 PM ARMY MANAGER Telemedicine [facility] [address] [place] [id number] Grecia Shipman MD [address] [place] [address] documented as of this encounter Visit Diagnoses Not on filedocumented in this encounter Additional Health Concerns Infection Onset Date Last Indicated Resolved Time R/O COVID19 12/26/2019 12/26/2019 12/28/2019 5:36 AM CDT documented as of this encounter Care Teams Dial Lathe Operator Relationship Specialty Start Date End Date Grecia Shipman MD [address] [place] [id number] PCP - General Internal Medicine 02/25/20 documented as of this encounter
[2025-01-05 12:40] VITALS: BP 117/72; PULSE 75; RESP 18; TEMP 36.5; O2SAT 95; BMI 26.3
--- NOTE | 2025-01-05 12:48 | ED.ABDPAIN ---
HPI - Abdominal Pain General Time Seen by Provider: 12:48 Date Seen: 01/05/25 Chief Complaint: Abdominal Pain Stated Complaint: Lower Right Abdominal Pain Time Seen by Provider: 01/05/25 12:47 Source: patient and RN notes reviewed Mode of arrival: ambulatory Limitations: no limitations Related Data Home Medications ?Medication ?Instructions ?Recorded ?Confirmed fluticasone propionate 50 1 spray intranasal PRN 02/15/22 01/05/25 mcg/actuation nasal spray,suspension omeprazole 20 mg capsule,delayed 20 mg PO QDAY 02/15/22 01/05/25 release rosuvastatin 5 mg tablet 5 mg PO QDAY 02/15/22 01/05/25 cholecalciferol (vitamin D3) 25 4,000 mcg PO QDAY 08/22/22 01/05/25 mcg (1,000 unit) capsule (Vitamin D3) losartan 25 mg tablet 25 mg PO QDAY 08/22/22 01/05/25 vilazodone 20 mg tablet 20 mg PO QDAY 08/22/22 01/05/25 metformin 500 mg tablet,extended 1,500 mg PO QDAY 10/05/23 01/05/25 release 24 hr semaglutide 0.25 mg or 0.5 mg (2 0.5 mg subcut QWEEK 08/19/24 01/05/25 mg/1.5 mL) subcutaneous pen injector (Zooomric) Previous Rx's ?Medication ?Instructions ?Recorded lancets #100 ea 09/02/22 blood sugar diagnostic (Accu-Chek #100 ea 09/06/22 Christa Plus test strips) blood-glucose meter (Accu-Chek #1 ea 09/06/22 Christa Plus Meter) Allergies Allergy/AdvReac Type Severity Reaction Status Date / Time No Known Drug Allergies Allergy Verified 01/05/25 12:45 [facility] Medical History Adhesive capsulitis of left shoulder ?M75.02 - Adhesive capsulitis of left shoulder (ICD-10) Piriformis syndrome ?G57.00 - Lesion of sciatic nerve, unspecified lower limb (ICD-10) Surgical History History of total hysterectomy with bilateral salpingo-oophorectomy (BSO) ?Z90.710 - Acquired absence of both cervix and uterus (ICD-10) ?Z90.722 - Acquired absence of ovaries, bilateral (ICD-10) ?Z90.79 - Acquired absence of other genital organ(s) (ICD-10) History of pelvic surgery ?Z98.890 - Other specified postprocedural states (ICD-10) Social History Smoking Status: Former smoker What tobacco products do you use: cigarettes Smoking quit date/years: <= 15 years ago Second hand tobacco smoke exposure: No Exam Const: Vital Signs, click to edit/add: Vital Signs - 24 hr 01/05/25 12:40 Temperature 97.7 F Pulse Rate [Right Pulse Oximeter] 75 Respiratory Rate 18 Blood Pressure [Ri ght Upper Arm] 117/72 Pulse Oximetry 95 Oxygen Delivery Me thod Room Air Course Vital Signs Vital signs: Initial Vital Signs Temperature 97.7 F 01/05/25 12:40 Temperature Source Temporal Artery Scan 01/05/25 12:40 Pulse Rate 75 01/05/25 12:40 Pulse Rhythm Regular 01/05/25 12:40 Pulse Strength 3+ Normal 01/05/25 12:40 Respiratory Rate 18 01/05/25 12:40 Blood Pressure 117/72 01/05/25 12:40 Blood Pressure Mean 87 01/05/25 12:40 Blood Pressure Position Sitting 01/05/25 12:40 Pulse Oximetry 95 01/05/25 12:40 Oxygen Delivery Method Room Air 01/05/25 12:40 Vital Signs Temperature 97.7 F 01/05/25 12:40 Pulse Rate 75 01/05/25 12:40 Respiratory Rate 18 01/05/25 12:40 Blood Pressure 117/72 01/05/25 12:40 Pulse Oximetry 95 01/05/25 12:40 Oxygen Delivery Method Room Air 01/05/25 12:40 Temperature 97.7 F 01/05/25 12:40 Pulse Rate 75 01/05/25 12:40 Respiratory Rate 18 01/05/25 12:40 Blood Pressure 117/72 01/05/25 12:40 Pulse Oximetry 95 01/05/25 12:40 Oxygen Delivery Method Room Air 07/20/25 12:40 Discharge Plan Discharge Prescriptions: No Action omeprazole 20 mg capsule,delayed release(DR/EC) 20 mg PO QDAY rosuvastatin 5 mg tablet 5 mg PO QDAY fluticasone propionate 50 mcg/actuation spray,suspension 1 spray intranasal PRN cholecalciferol (vitamin D3) [Vitamin D3] 25 mcg (1,000 unit) capsule 4,000 mcg PO QDAY metformin 500 mg tablet extended release 24 hr 1,500 mg PO QDAY vilazodone 20 mg tablet 20 mg PO QDAY losartan 25 mg tablet 25 mg PO QDAY Patient Comments: TAKE 1 TABLET BY MOUTH DAILY Ozempic 0.25 mg or 0.5 mg(2 mg/1.5 mL) pen injector 0.5 mg subcut QWEEK (DME) lancets Misc See Rx Instructions .Route Qty: 100 3RF Rx Instructions: Check glucose once daily (DME) blood-glucose meter [Accu-Chek Christa Plus Meter] Misc See Rx Instructions .Route Qty: 1 0RF Rx Instructions: As directed (DME) Accu-Chek Christa Plus test strp Strip See Rx Instructions .Route Qty: 100 3RF Rx Instructions: check glucose once daily Follow Up/Referrals: Provider,Not a Local [Primary Care Provider, Family Practice]
--- NOTE | 2025-01-05 12:58 | ED.ABDPAIN ---
HPI - Abdominal Pain General Time Seen by Provider: 12:58 Date Seen: 01/05/25 Chief Complaint: Abdominal Pain Stated Complaint: Lower Right Abdominal Pain Time Seen by Provider: 01/05/25 12:47 Source: patient, family, RN notes reviewed and old records reviewed Mode of arrival: ambulatory Limitations: no limitations History of Present Illness HPI narrative: Alea is a very pleasant 69-year-old female with history type 2 diabetes, microalbumin area, depression, hyperlipidemia who comes to the emergency room with abdominal pain. Patient notes the onset of odd symptoms as she describes some on Monday night January 03. She states that she awoke in the middle of the night with in cold sweating and a rapid heart rate. Notes that she took her blood pressure and was feeling somewhat improved as she is worried that it was her heart. She was able to go back to bed that night. Yesterday she notes that she just felt off. Did have an episode of nausea but no vomiting. Today she started having copious amounts of very watery stools. This was associated with the onset of right lower quadrant pain. She has not had any fever or chills, no past history of diverticulitis or diverticulosis. She still has a gallbladder and appendix. No recent antibiotics, travel, ill exposures, changing diapers, uncooked foods. Patient initially presented to urgent care. Because of the right lower quadrant tenderness she was sent to the emergency room. Related Data Home Medications ?Medication ?Instructions ?Recorded ?Confirmed fluticasone propionate 50 1 spray intranasal PRN 02/15/22 01/05/25 mcg/actuation nasal spray,suspension omeprazole 20 mg capsule,delayed 20 mg PO QDAY 02/15/22 01/05/25 release rosuvastatin 5 mg tablet 5 mg PO QDAY 02/15/22 01/05/25 cholecalciferol (vitamin D3) 25 4,000 mcg PO QDAY 08/22/22 01/05/25 mcg (1,000 unit) capsule (Vitamin D3) losartan 25 mg tablet 25 mg PO QDAY 08/22/22 01/05/25 vilazodone 20 mg tablet 20 mg PO QDAY 08/22/22 01/05/25 metformin 500 mg tablet,extended 1,500 mg PO QDAY 10/05/23 01/05/25 release 24 hr semaglutide 0.25 mg or 0.5 mg (2 0.5 mg subcut QWEEK 08/19/24 01/05/25 mg/1.5 mL) subcutaneous pen injector (Ozempic) Previous Rx's ?Medication ?Instructions ?Recorded lancets #100 ea 09/02/22 blood sugar diagnostic (Accu-Chek #100 ea 09/06/22 Christa Plus test strips) blood-glucose meter (Accu-Chek #1 ea 09/06/22 Christa Plus Meter) Allergies Allergy/AdvReac Type Severity Reaction Status Date / Time No Known Drug Allergies Allergy Verified 01/05/25 12:45 Review of Systems Status of ROS Reports: 6 or more systems reviewed and unremarkable except as noted in History and below Const Reports: fatigue; Denies: fever or chills ENMT Denies: nasal congestion Cardio Denies: chest pain, swelling of feet/ankles or shortness of breath with exertion Resp Denies: shortness of breath GI Reports: abdominal pain, nausea and diarrhea; Denies: constipation or blood in stool Denies: painful urination Musculo Denies: back pain Endo Reports: fatigue PFSH PFSH Medical History Adhesive capsulitis of left shoulder ?M75.02 - Adhesive capsulitis of left shoulder (ICD-10) Piriformis syndrome ?G57.00 - Lesion of sciatic nerve, unspecified lower limb (ICD-10) Surgical History History of total hysterectomy with bilateral salpingo-oophorectomy (BSO) ?Z90.710 - Acquired absence of both cervix and uterus (ICD-10) ?Z90.722 - Acquired absence of ovaries, bilateral (ICD-10) ?Z90.79 - Acquired absence of other genital organ(s) (ICD-10) History of pelvic surgery ?Z98.890 - Other specified postprocedural states (ICD-10) Social History Smoking Status: Former smoker What tobacco products do you use: cigarettes Smoking quit date/years: <= 15 years ago Second hand tobacco smoke exposure: No Exam Narrative: Exam Narrative: Patient is alert and oriented. No acute distress. External ears eyes nose clear. Heart with regular rate and rhythm and lungs are clear. Abdomen is soft with tenderness noted in the right lower quadrant as well as area just to the right of the umbilicus. Patient does seem somewhat bloated and bowel sounds appear to be hyperactive. Lower extremities without any edema. Tapping of the right heel does cause her abdominal discomfort. Const: Vital Signs, click to edit/add: Vital Signs - 24 hr 01/05/25 12:40 01/05/25 15:01 Temperature 97.7 F 97.2 F L Pulse Rate [Right Pulse Oximeter] 75 66 Respiratory Rate 18 18 Blood Pressure [Ri ght Upper Arm] 117/72 123/78 Pulse Oximetry 95 95 Oxygen Delivery Me thod Room Air Room Air Documenting provider has reviewed patient's vital signs: yes Course Course ED Course: Differential diagnosis includes but is not limited to appendicitis, diverticulitis, colitis, food-borne illness, viral infection. At this time will place IV give 1 L of normal saline Zofran 4 mg. Once the creatinine returns and it is normal will plan on Toradol [address] mg IV and abdominal CT with IV contrast. Will also check urinalysis. Reevaluation(s) Reevaluation #1: Patient notes much improvement with the IV Toradol given after creatinine was within normal limits. No vomiting or diarrhea in the ED. Vital Signs Vital signs: Initial Vital Signs Temperature 97.7 F 01/05/25 12:40 Temperature Source Temporal Artery Scan 01/05/25 12:40 Pulse Rate 75 01/05/25 12:40 Pulse Rhythm Regular 01/05/25 12:40 Pulse Strength 3+ Normal 01/05/25 12:40 Respiratory Rate 18 01/05/25 12:40 Blood Pressure 117/72 01/05/25 12:40 Blood Pressure Mean 87 01/05/25 12:40 Blood Pressure Position Sitting 01/05/25 12:40 Pulse Oximetry 95 01/05/25 12:40 Oxygen Delivery Method Room Air 01/05/25 12:40 Vital Signs Temperature 97.7 F 01/05/25 12:40 Pulse Rate 75 01/05/25 12:40 Respiratory Rate 18 01/05/25 12:40 Blood Pressure 117/72 01/05/25 12:40 Pulse Oximetry 95 01/05/25 12:40 Oxygen Delivery Method Room Air 01/05/25 12:40 Temperature 97.2 F L 01/05/25 15:01 Pulse Rate 66 01/05/25 15:01 Respiratory Rate 18 01/05/25 15:01 Blood Pressure 123/78 01/05/25 15:01 Pulse Oximetry 95 01/05/25 15:01 Oxygen Delivery Method Room Air 01/05/25 15:01 Medications Administered Medications: Discontinued Medications Generic Name Dose Route Start Last Admin Trade Name Mike PRN Reason Stop Dose Admin Sodium Chloride 1,000 mls @ 1,000 mls/hr 01/05/25 12:59 01/05/25 15:45 0.9 % Sodium Chloride 1000 Ml IV 01/05/25 13:58 Infused .Q1H SHARATH Infusion Ketorolac Tromethamine 15 mg 01/05/25 14:25 01/05/25 14:30 Ketorolac 15 Mg/Ml Inj IVP 01/05/25 14:26 15 mg ONCE ONE Administration Ondansetron HCl 4 mg 01/05/25 12:58 01/05/25 13:42 Ondansetron 2 Mg/Ml Inj IVP 01/05/25 12:59 Not Given ONCE ONE MDM - Abdominal Pain MDM Narrative Medical decision making narrative: 1. Abdominal pain-no evidence of abnormality noted on CT. Patient much improved with Toradol. May continue ibuprofen and Tylenol, alternating every 4 hours at home as needed for discomfort. Will also give her prescription of Zofran 4 mg ODT in our [employer] meds machine for treatment of nausea if needed. Recommend recheck if worsening symptoms. 2. Diarrhea-home at this time. Given the negative CT, reassuring laboratory values, will send patient home with stool collection kit as she is unable to produce stool at this time. Did explain that we do not use antibiotics unless we have an identifiable bacterial infection that is responsive to such treatment. Recommend pushing fluids. Should have gradual improvement over the next 48 hours. Of course return to the ER for worsening symptoms. 3. History of racing heart-sinus rhythm in the ED on monitor as well as on the EKG. No acute ST or T-wave changes noted. Likely reactive to underlying abdominal symptoms. No recurrences in the ED. 4. Disposition-home with at this time. Return for worsening symptoms and as needed. Note a few white cells noted on urinalysis. Would not treat at this time unless culture was positive. Medical Records Attestation: I reviewed the patient's medical records. Lab Data Attestation: I reviewed the patient's lab results. Labs: Lab Results 01/05/25 01/05/25 Range/Units 13:25 13:35 WBC 9.29 (4.50-11.00) K/uL RBC 4.46 (4.00-5.20) m/uL Hgb 14.0 (12.0-16.0) gm/dL Hct 43.4 (33.0-51.0) % MCV 97 (80-100) fL MCH 31 (26-34) pg MCHC 32 (32-36) gm/dL RDW Coeff of Will 13.7 (11.5-15.5) % Plt Count 283 (140-440) K/uL Neut % (Auto) 59.7 (42.0-72.0) % Lymph % (Auto) 27.3 (20-44) % [place] % (Auto) 9.3 (0.0-11.0) % Eos % (Auto) 3.1 (0.0-7.0) % Baso % (Auto) 0.4 (0.0-3.0) % Neut # (Auto) 5.54 (1.7-7.0) K/uL Lymph # (Auto) 2.54 (0.90-2.90) K/uL [place] # (Auto) 0.90 (0.00-0.90) K/UL Eos # (Auto) 0.29 (0.00-0.50) K/uL Baso # (Auto) 0.04 (0.00-0.30) K/uL Abs Immat Gran (auto) 0.02 (0.00-0.30) K/uL Imm/Tot Granulo (auto) 0.2 % Sodium 139 (135-149) mmol/L Potassium 4.2 (3.6-5.1) mmol/L Chloride 106 (96-114) mmol/L Carbon Dioxide 24 (20-32) mmol/L Anion Gap 9 (7-15) mEq/L BUN 16 (7-30) mg/dL Creatinine 0.7 (0.5-1.5) mg/dL Estimated Creat Clear 51.63 Estimated GFR 94 ml/min Glucose 123 H (60-115) mg/dL Lactate 1.4 (0.5-1.9) mmol/L Calcium 9.8 (8.4-10.6) mg/dL Total Bilirubin 0.5 (0.1-1.5) mg/dL AST 27 (12-35) U/L ALT 23 (4-35) U/L Alkaline Phosphatase 43 (40-150) U/L C-Reactive Protein < 0.5 L (0.5-1.0) mg/dL Total Protein 7.6 (6.0-8.3) g/dL Albumin 4.8 (3.3-5.0) g/dL Lipase 248 (23-300) U/L Urine Color Yellow (Yellow) Urine Appearance Clear (Clear) Urine pH 5.0 (5.0-8.5) Ur Specific [place] 1.020 (1.000-1.030) Urine Protein Trace A (Negative) Urine Glucose (UA) Negative (Negative) Urine Ketones Negative (Negative) Urine Blood Trace-lysed A (Negative) Urine Nitrite Negative (Negative) Urine Bilirubin Negative (Negative) Urine Urobilinogen 0.2 (0.2-1.0) Ur Leukocyte Esterase 1+ A (Negative) Urine RBC 0-2 (0-2) Urine WBC 2-5 (0-5) Ur Squamous Epith Cells Many A (None-Few) Urine Bacteria Moderate A (None) Imaging Data CT scan - abdomen: Attestation: I have reviewed the pertinent imaging results. Radiologist's impression: ower chest: Unremarkable. Liver: Subcentimeter hypodensity, too small to characterize. Diffusely hypodense hepatic parenchyma, which may reflect steatosis. Gallbladder and bile ducts: Unremarkable. No stones or inflammation. No biliary dilatation. Pancreas: Unremarkable. No mass or inflammation. Spleen: Unremarkable. Normal in size. No masses. Adrenal glands: Unremarkable. No nodules. Kidneys: Subcentimeter hypodensities, too small to characterize. Left superior pole renal cyst. No hydroureteronephrosis or evident urolithiasis. GI tract: Normal in caliber. No sign of mass or inflammation. The cecum is located in the central inferior abdomen, likely reflecting a hypermobile cecum. Normal appendix. Vasculature: Abdominal aorta is normal in caliber. Mesenteric arteries are patent. Lymph nodes: No lymphadenopathy. Peritoneum/Abdominal Wall: Small fat containing left paraumbilical hernia. Small fat containing infraumbilical hernia in the pelvis just to the right of center. No sign of mass or infiltration. No free air or significant free fluid. Pelvis: Unremarkable. Bones: Chronic-appearing T12 wedge compression deformity with approximately 50 percent anterior height loss and mild bony retropulsion of the superior endplate. IMPRESSION: No acute findings in the abdomen or pelvis. ECG Data Attestation: I personally reviewed and interpreted this ECG as follows: ECG interpretation date: 01/05/25 Interpretation: EKG by my read shows sinus rhythm at a rate of 61. I do not note any acute ST or T-wave changes. QT and NH intervals within normal limits. Discharge Plan Discharge Clinical Impression: Abdominal pain Qualifiers: Abdominal location: right lower quadrant Qualified Code(s): R10.31 - Right lower quadrant pain Diarrhea Qualifiers: Diarrhea type: unspecified type Qualified Code(s): R19.7 - Diarrhea, unspecified Patient Disposition: Home, Self-Care Condition: Improved Additional Instructions: Recommend alternating ibuprofen and Tylenol every 4 hours as needed for discomfort. Push fluids not just water that also Gatorade Powerade except trip. Will send home with stool collection kit for you. Please return it to the ER. Will contact you for positive results. Otherwise, you should expect gradual improvement of your symptoms over the next few days. Zofran as needed for nausea is sent to our pre vending machine for you. Your urinalysis did show some white cells but not enough that I would treat you for UTI. Your urinalysis was going to be sent for urine culture. Should it be returned as positive we will call you and start you on an antibiotic. Prescriptions: No Action omeprazole 20 mg capsule,delayed release(DR/EC) 20 mg PO QDAY rosuvastatin 5 mg tablet 5 mg PO QDAY fluticasone propionate 50 mcg/actuation spray,suspension 1 spray intranasal PRN cholecalciferol (vitamin D3) [Vitamin D3] 25 mcg (1,000 unit) capsule 4,000 mcg PO QDAY metformin 500 mg tablet extended release 24 hr 1,500 mg PO QDAY vilazodone 20 mg tablet 20 mg PO QDAY losartan 25 mg tablet 25 mg PO QDAY Patient Comments: TAKE 1 TABLET BY MOUTH DAILY Ozempic 0.25 mg or 0.5 mg(2 mg/1.5 mL) pen injector 0.5 mg subcut QWEEK (DME) lancets Misc See Rx Instructions .Route Qty: 100 3RF Rx Instructions: Check glucose once daily (DME) blood-glucose meter [Accu-Chek Christa Plus Meter] Misc See Rx Instructions .Route Qty: 1 0RF Rx Instructions: As directed (DME) Accu-Chek Christa Plus test strp Strip See Rx Instructions .Route Qty: 100 3RF Rx Instructions: check glucose once daily Follow Up/Referrals: Provider,Not a Local [Primary Care Provider, Family Practice] Stand Alone Forms: MyHealth Info Instructions
[2025-01-05 13:34] LABS: Appearance Urine Clear (Clear)
[2025-01-05 13:40] LABS: Lactate Sepsis w/Reflex* 1.4 mmol/L (0.5-1.9)
[2025-01-05 13:45] LABS: Hematocrit 43.4 % (33.0-51.0); Hemoglobin* 14.0 gm/dL (12.0-16.0); Immature Granulocytes Abs Auto 0.02 K/uL (0.00-0.30); Immature Granulocytes Pct Auto 0.2 %; Lymphocytes Absolute Auto 2.54 K/uL (0.90-2.90); Mean Corpuscular HGB Conc 32 gm/dL (32-36); Mean Corpuscular Hemoglobin 31 pg (26-34); Mean Corpuscular Volume 97 fL (80-100); RDW Coefficient of Variation % 13.7 % (11.5-15.5); Red Blood Count 4.46 m/uL (4.00-5.20); White Blood Count* 9.29 K/uL (4.50-11.00)
[2025-01-05 13:47] LABS: Slide Review Reflex No
[2025-01-05 14:00] LABS: Albumin* 4.8 g/dL (3.3-5.0); Chloride* 106 mmol/L (96-114); Potassium* 4.2 mmol/L (3.6-5.1); Sodium* 139 mmol/L (135-149)
[2025-01-05 14:03] LABS: Alanine Aminotransferase* 23 U/L (4-35); Alkaline Phosphatase* 43 U/L (40-150); Anion Gap 9 mEq/L (7-15); Aspartate Amino Transferase* 27 U/L (12-35); Bilirubin Total* 0.5 mg/dL (0.1-1.5); Blood Urea Nitrogen* 16 mg/dL (7-30); Calcium* 9.8 mg/dL (8.4-10.6); Carbon Dioxide* 24 mmol/L (20-32); Creatinine* 0.7 mg/dL (0.5-1.5); Est. Creatinine Clearance* 51.63; Estimated Glomerular Filt Rate 94 ml/min; Glucose* 123 mg/dL (60-115); Total Protein* 7.6 g/dL (6.0-8.3)
--- NOTE | 2025-01-05 14:25 | CRLHL7_ITS ---
For Patients: As a result of the Century Cures Act, medical imaging exams and procedure reports are released immediately into your electronic medical record. You may view this report before your referring provider. If you have questions, please contact your health care provider. INDICATION: Right lower quadrant pain x 2 days - getting worse. TECHNIQUE: CT abdomen and pelvis acquired with 82 cc Isovue 370 IV contrast. COMPARISON: None. FINDINGS: Lower chest: Unremarkable. Liver: Subcentimeter hypodensity, too small to characterize. Diffusely hypodense hepatic parenchyma, which may reflect steatosis. Gallbladder and bile ducts: Unremarkable. No stones or inflammation. No biliary dilatation. Pancreas: Unremarkable. No mass or inflammation. Spleen: Unremarkable. Normal in size. No masses. Adrenal glands: Unremarkable. No nodules. Kidneys: Subcentimeter hypodensities, too small to characterize. Left superior pole renal cyst. No hydroureteronephrosis or evident urolithiasis. GI tract: Normal in caliber. No sign of mass or inflammation. The cecum is located in the central inferior abdomen, likely reflecting a hypermobile cecum. Normal appendix. Vasculature: Abdominal aorta is normal in caliber. Mesenteric arteries are patent. Lymph nodes: No lymphadenopathy. Peritoneum/Abdominal Wall: Small fat containing left paraumbilical hernia. Small fat containing infraumbilical hernia in the pelvis just to the right of center. No sign of mass or infiltration. No free air or significant free fluid. Pelvis: Unremarkable. Bones: Chronic-appearing T12 wedge compression deformity with approximately 50 percent anterior height loss and mild bony retropulsion of the superior endplate. IMPRESSION: No acute findings in the abdomen or pelvis. Please note that all CT scans at this facility use dose modulation, iterative reconstruction, and/or weight-based dosing when appropriate to reduce radiation dose to as low as reasonably achievable. Dictated by Israel Clancy MD @ 01/05/2025 3:52:46 PM (Electronically Signed)
[2025-01-05 15:01] VITALS: BP 123/78; PULSE 66; RESP 18; TEMP 36.2; O2SAT 95
[2025-01-08 01:56] LABS: Campylobacter PCR Not Detected; Enteroaggregative E coli PCR Not Detected; Enteropathogenic E coli PCR Not Detected; Enterotoxigenic E coli PCR Not Detected; Plesiomonas shig PCR Not Detected; Shiga toxin E coli PCR Not Detected
== END 2025-01-05 16:34 | disposition home or self-care (01) ==
PROVIDERS: Emergency Provider Family Medicine
DX: R10.31 Right lower quadrant pain (principal); R19.7 Diarrhea, unspecified
CPT/HCPCS: 36415; 74177; 80053; 81001; 83605; 83690; 85025; 86140; 87086; 87507; 93005; 96374; 99284; 99285; J1885; J7030; Q9967

== ENCOUNTER 2025-02-03 13:44 | Outpatient (CLI) | payer OTHER, SELFPAY | END 2025-02-03 13:45 | disposition home or self-care (01) | LOC: NFLDREF 02-06 12:54 | DX: N30.01 Acute cystitis with hematuria (principal); B96.1 Klebsiella pneumoniae [K. pneumoniae] as the cause of diseases classified elsewhere | CPT/HCPCS: 87086 ==